=== PATIENT | female | born 1940 | race Caucasian/White ===

== ENCOUNTER → 2017-06-30 | Outpatient (CLI) | payer MEDICARE, BC ==
[~2017-06-30] MED LIST: ALLO100 PO; AMLO10 PO; BUPR75; CALCA500CH PO; CIPR500 PO; CRANBERRY PO; CYAN1000 PO; DIPATR PO; ESOM20; EXFORGE PO; FENT25TP TOP; GABA400 PO; HYDACE10B PO; HYOS0.375T PO; LANS15EC; LEVSOD50 PO; LUNESTA; MECL25 PO; METF500C PO; METFORMIN PO; METO100ER; METO100ER PO; METO50; PHENA100 PO; PRAVACHOL PO; PROBIOTIC PO; TOPROL PO; TOPROL XL PO; VALA500 PO; ZOLP10 PO
[2017-06-30 10:58] LABS: Source, Urine Clean Catch
[2017-06-30 11:41] LABS: Bilirubin, Urine Neg (Neg); Blood, Urine 1+ (Neg); Glucose Qualitative, Urine Neg (Neg); Ketones, Urine Neg (Neg); Leukocyte Esterase, Urine 3+ (Neg); Nitrite, Urine Neg (Neg); Protein, Urine Neg (Neg); Urobilinogen, Urine NORM (Normal)
[2017-06-30 11:52] LABS: Appearance, Urine Clear (Clear); Color, Urine Yellow (P-Yellow)
[2017-06-30 11:54] LABS: Bacteria Many /hpf; Red Blood Cells, Urine 0-2 /hpf (0-2); Squamous Epithelial Cells Mod /hpf (Few); White Blood Cells, Urine TNTC /hpf (0-5)
== END ==
LOC: LAB 10:56
PROVIDERS: Internal Medicine Hematology & Oncology
DX: R30.0 Dysuria (principal)
CPT/HCPCS: 81001; 87077; 87086; 87186

== ENCOUNTER → 2017-07-26 | Outpatient (CLI) | payer MEDICARE, BC ==
[2017-07-26 11:18] LABS: Source, Urine Clean Catch
[2017-07-26 11:42] LABS: Bilirubin, Urine Neg (Neg); Blood, Urine Neg (Neg); Glucose Qualitative, Urine Neg (Neg); Ketones, Urine Neg (Neg); Leukocyte Esterase, Urine Neg (Neg); Nitrite, Urine Neg (Neg); Protein, Urine Neg (Neg); Urobilinogen, Urine NORM (Normal)
[2017-07-26 12:06] LABS: Appearance, Urine Clear (Clear); Color, Urine Yellow (P-Yellow)
== END | disposition home or self-care (01) ==
LOC: LAB 11:17
PROVIDERS: Internal Medicine Hematology & Oncology
DX: C90.00 Multiple myeloma not having achieved remission (principal); N18.3 Chronic kidney disease, stage 3 (moderate); D63.1 Anemia in chronic kidney disease; R30.0 Dysuria
CPT/HCPCS: 81003

== ENCOUNTER → 2017-12-07 | Outpatient (CLI) | payer MEDICARE, BC ==
[2017-12-07 11:26] LABS: Source, Urine Clean Catch
[2017-12-07 12:01] LABS: Bilirubin, Urine Neg (Neg); Blood, Urine Neg (Neg); Glucose Qualitative, Urine Neg (Neg); Ketones, Urine Neg (Neg); Leukocyte Esterase, Urine Neg (Neg); Nitrite, Urine Neg (Neg); Protein, Urine Neg (Neg); Urobilinogen, Urine NORM (Normal); pH, Urine 6.5 (5.0-8.0)
[2017-12-07 12:18] LABS: Appearance, Urine Clear (Clear); Color, Urine Yellow (P-Yellow)
== END | disposition home or self-care (01) ==
LOC: LAB 11:25 → LAB SHORT 11:25
PROVIDERS: Internal Medicine Hematology & Oncology
DX: R30.0 Dysuria (principal); R53.81 Other malaise; R53.83 Other fatigue
CPT/HCPCS: 81003

== ENCOUNTER 2018-10-27 20:00 | Inpatient (IN) | payer MEDICARE, BC ==
[~2018-10-27] VITALS: Ht 165.1 cm; Wt 80.7 kg
[~2018-10-27 20:00] MED LIST changes: -AMLO10 PO; +AMLO5 PO; -LEVSOD50 PO; -METF500C PO; -METO100ER PO
[2018-10-27 20:40] LABS: BASOPHILS ABSOLUTE AUTO 0.01 K/mm3 (0.00-0.23); BASOPHILS PERCENT AUTO 0 % (0-2); EOSINOPHILS ABSOLUTE AUTO 0.07 K/mm3 (0.00-0.68); EOSINOPHILS PERCENT AUTO 2 % (0-6); Hematocrit 30.7 % (33.0-51.0); Hemoglobin 9.6 g/dL (11.5-16.0); IMMATURE GRAN ABSOLUTE AUTO 0.04 K/mm3 (0.00-0.10); IMMATURE GRAN PERCENT AUTO 1 % (0-1); LYMPHOCYTES ABSOLUTE AUTO 1.11 K/mm3 (0.84-5.20); LYMPHOCYTES PERCENT AUTO 31 % (21-46); MONOCYTES ABSOLUTE AUTO 0.36 K/mm3 (0.16-1.47); MONOCYTES PERCENT AUTO 10 % (4-13); Mean Corpuscular HGB 33.9 pg (26.0-34.0); Mean Corpuscular HGB Conc 31.3 g/dL (31.5-36.5); Mean Corpuscular Volume 109 fL (80-100); Mean Platelet Volume 10.1 fL (9.1-12.4); NEUTROPHILS ABSOLUTE AUTO 2.02 K/mm3 (1.96-9.15); NEUTROPHILS PERCENT AUTO 56 % (41-73); Platelet Count 77 K/mm3 (150-400); RDW Coefficient Variation 17.6 % (11.7-14.2); RDW Standard Deviation 69.8 fL (35.1-46.3); Red Blood Cell Count 2.83 M/mm3 (3.80-5.20); White Blood Cell Count 3.61 K/mm3 (4.00-11.30)
[2018-10-27 20:58] LABS: Albumin, Blood 3.6 g/dL (3.4-5.0); Albumin/Globulin Ratio 1.2 (0.8-1.8); Bilirubin, Total 0.3 mg/dL (0.1-1.0); Bun/Creatinine Ratio 18.8 (12.0-20.0); Calcium, Blood 9.3 mg/dL (8.5-10.1); Creatinine, Blood 1.38 mg/dL (0.40-1.00); Potassium, Blood 3.6 mmol/L (3.5-5.5); Total Protein, Blood 6.6 g/dL (6.4-8.2); Troponin I 0.222 ng/mL (0.000-0.040)
[2018-10-27] MEDS ORDERED: Dyazide 37.5-21 EACH PO (21:29)
[2018-10-27] MEDS ORDERED: AMIT25 PO (21:30)
[2018-10-28 02:19] LABS: Hematocrit 26.6 % (33.0-51.0); Hemoglobin 8.4 g/dL (11.5-16.0); Mean Corpuscular HGB 34.1 pg (26.0-34.0); Mean Corpuscular HGB Conc 31.6 g/dL (31.5-36.5); Mean Corpuscular Volume 108 fL (80-100); Mean Platelet Volume 11.4 fL (9.1-12.4); Platelet Count 67 K/mm3 (150-400); RDW Coefficient Variation 17.8 % (11.7-14.2); Red Blood Cell Count 2.46 M/mm3 (3.80-5.20); White Blood Cell Count 3.68 K/mm3 (4.00-11.30)
[2018-10-28 02:35] LABS: Creatinine, Blood 1.22 mg/dL (0.40-1.00); International Normalized Ratio 1.03; Magnesium, Blood 1.8 mg/dL (1.6-2.4); Potassium, Blood 3.8 mmol/L (3.5-5.5); Prothrombin Time Results 10.9 Sec (9.7-11.5)
--- NOTE | 2018-10-28 04:44 | NUR ---
SHIFT SUMMARY: PATIENT C/O DAVIS, TYLENOL GIVEN PER MD ORDER, NOT EFFECTIVE. TROPONIN INCREASED, PATIENT ASYMPTOMATIC, LAB VALUE CALLED TO MD. VSS, CALL LIGHT WITHIN REACH, BED LOW AND LOCKED.
--- NOTE | 2018-10-28 07:48 | NUR ---
PT LAYING IN BED AWAKE A/OX3, PLEASANT AND COOPERATIVE WITH CARE, FOLLOWS COMMANDS WELL, STATES SHE HAS SOME JAW PAIN, IN TO SEE HER, ORDERED S.L. NTG, THIS WAS GIVEN AND RELIEVED THE DISCOMFORT, B/P IS WNL, PT REPORTS A H/A COOL WASH CLOTH GIVEN FOR COMFORT TO HER F/H, LUNGS ARE CLEAR T/O, RESP EVEN AND UNLABORED, IS CURRENTLY ON 2 LITERS 02 VIA N/C, HRR, TELE IN PLACE RUNNING SR IN THE 90'S PER MONITOR, SEE STRIP, NO EDEMA NOTED, PPP FAINT, CAP REFILL <3 SEC, PT REPORTS NEUROPATHY TO B/L LE, IV SITE TO RAC, SITE IS CLEAR AND PATENT, INFSUING HEPERIN GTT ORDERED, SKIN C/W/D, CORA VALIENTE, CALL LIGHT IN REACH, SPOKE WITH DR. GONZALEZ ABOUT HER MEDICATIONS THAT ARE DUE BECAUSE OF HER PLTS AT 67, HE SAID TO HOLD OFF UNTIL AFTER THE PROCEDURE.
--- NOTE | 2018-10-28 11:20 | NUR ---
PT HAS BEEN PREPED AND TAKEN DOWN TO THE PROGRAM EVALUATION CONSULTANT FOR [facility], JUST RECIEVED CALL THAT SHE IS ON HER WAY BACK UP.
--- NOTE | 2018-10-28 13:20 | NUR ---
PT WAS PICKED UP BY TRANSPORT FOR [facility]. EMT WAS GIVEN PACKET. LEFT WITH HEPERIN GTT INFUSING.
== END 2018-10-28 13:30 | disposition short-term general hospital (02) | DRG 281 ==
LOC: ER 20:00 → PCU 22:19
PROVIDERS: Emergency Medicine; Nurse Practitioner Acute Care; ADMIT Internal Medicine
PROC: 4A023N7 Measurement of Cardiac Sampling and Pressure, Left Heart, Percutaneous Approach (ICD-10-PCS; principal; 2018-10-28)
PROC: B211YZZ Fluoroscopy of Multiple Coronary Arteries using Other Contrast (ICD-10-PCS; 2018-10-28)
DX: I21.4 Non-ST elevation (NSTEMI) myocardial infarction (principal); C90.01 Multiple myeloma in remission; E78.5 Hyperlipidemia, unspecified; F41.1 Generalized anxiety disorder; F32.9 Major depressive disorder, single episode, unspecified; K21.9 Gastro-esophageal reflux disease without esophagitis; E03.9 Hypothyroidism, unspecified; I12.9 Hypertensive chronic kidney disease with stage 1 through stage 4 chronic kidney disease, or unspecified chronic kidney disease; E11.22 Type 2 diabetes mellitus with diabetic chronic kidney disease; N18.3 Chronic kidney disease, stage 3 (moderate); I25.10 Atherosclerotic heart disease of native coronary artery without angina pectoris; I25.84 Coronary atherosclerosis due to calcified coronary lesion; Z95.5 Presence of coronary angioplasty implant and graft
CPT/HCPCS: 36415; 71046; 80048; 80053; 82947; 83735; 83880; 84443; 84484; 85025; 85027; 85347; 85610; 85730; 93005; 93010; 93306; 93458; 94640; 94660; 94762; 96374; 96375; 99152; 99153; 99285-25; A9270; C1769; C1894; J1644; J2250; J3010; J7030; J7040; Q9967

== ENCOUNTER 2019-02-04 18:50 | Inpatient (IN) | payer MEDICARE, BC ==
[~2019-02-04] VITALS: Ht 165.1 cm; Wt 76.2 kg
[~2019-02-04 18:50] MED LIST changes: +AMIT25 PO; +Dyazide 37.5-21 EACH PO
[2019-02-04] MEDS ORDERED: OMEPRAZOLE20 MG PO (19:26)
[2019-02-04 19:29] LABS: BASOPHILS ABSOLUTE AUTO 0.01 K/mm3 (0.00-0.23); BASOPHILS PERCENT AUTO 0 % (0-2); EOSINOPHILS ABSOLUTE AUTO 0.06 K/mm3 (0.00-0.68); EOSINOPHILS PERCENT AUTO 1 % (0-6); Hematocrit 29.9 % (33.0-51.0); Hemoglobin 9.4 g/dL (11.5-16.0); IMMATURE GRAN ABSOLUTE AUTO 0.03 K/mm3 (0.00-0.10); IMMATURE GRAN PERCENT AUTO 0 % (0-1); LYMPHOCYTES ABSOLUTE AUTO 0.87 K/mm3 (0.84-5.20); LYMPHOCYTES PERCENT AUTO 13 % (21-46); MONOCYTES ABSOLUTE AUTO 0.49 K/mm3 (0.16-1.47); MONOCYTES PERCENT AUTO 7 % (4-13); Mean Corpuscular HGB 34.9 pg (26.0-34.0); Mean Corpuscular HGB Conc 31.4 g/dL (31.5-36.5); Mean Corpuscular Volume 111 fL (80-100); Mean Platelet Volume 11.4 fL (9.1-12.4); NEUTROPHILS ABSOLUTE AUTO 5.32 K/mm3 (1.96-9.15); NEUTROPHILS PERCENT AUTO 79 % (41-73); NRBC ABSOLUTE 0.03 K/mm3 (0.00-0.02); NRBC Auto 0.4 /100 WBC (0.0-0.2); Platelet Count 73 K/mm3 (150-400); RDW Coefficient Variation 16.5 % (11.7-14.2); RDW Standard Deviation 66.2 fL (35.1-46.3); Red Blood Cell Count 2.69 M/mm3 (3.80-5.20); White Blood Cell Count 6.78 K/mm3 (4.00-11.30)
[2019-02-04 19:45] LABS: Alanine Aminotransfer (ALT/SGP 45 U/L (12-78); Albumin, Blood 3.9 g/dL (3.4-5.0); Albumin/Globulin Ratio 1.3 (0.8-1.8); Alk Phos 67 U/L (50-136); Anion Gap 5 mmol/L (6-16); Aspartate Aminotrans (AST/SGOT 40 U/L (12-37); Bilirubin, Total 0.9 mg/dL (0.1-1.0); Blood Urea Nitrogen 27 mg/dL (8-24); Bun/Creatinine Ratio 20.5 (12.0-20.0); CO2, Blood 23 mmol/L (21-32); Calcium, Blood 8.9 mg/dL (8.5-10.1); Chloride, Blood 111 mmol/L (98-108); Creatinine, Blood 1.32 mg/dL (0.40-1.00); Glomerular Filtration Rate 41 (60-); Glucose, Blood 154 mg/dL (70-99); Potassium, Blood 3.9 mmol/L (3.5-5.5); Sodium, Blood 139 mmol/L (136-145); Total Protein, Blood 6.9 g/dL (6.4-8.2); Troponin I <0.015 ng/mL (0.000-0.040)
[2019-02-04] MEDS ORDERED: TICA90TA PO (20:29)
[2019-02-04] MEDS ORDERED: METO50ER PO (20:31)
[2019-02-04] MEDS ORDERED: LEVSOD50 PO (20:31)
[2019-02-04] MEDS ORDERED: Glucophage1000 MG PO (20:31)
[2019-02-04] MEDS ORDERED: Prinivil10 MG PO (20:32)
[2019-02-04] MEDS ORDERED: ACYC200 PO (20:32)
[2019-02-04] MEDS ORDERED: Dyazide 37.5-21 EACH PO (20:33)
[2019-02-04] MEDS ORDERED: AMLO10 PO (20:34)
[2019-02-04] MEDS ORDERED: ALLO300 PO (20:37)
[2019-02-04] MEDS ORDERED: SILENOR6 MG PO (20:38)
[2019-02-04] MEDS ORDERED: Pravachol40 MG PO (20:39)
[2019-02-04] MEDS ORDERED: HYDR1TAB94 PO (21:28)
[2019-02-04] MEDS ORDERED: Aspir 8181 MG PO (21:29)
[2019-02-05 02:59] LABS: Bun/Creatinine Ratio 24.8 (12.0-20.0); Calcium, Blood 8.6 mg/dL (8.5-10.1); Creatinine, Blood 1.25 mg/dL (0.40-1.00); Potassium, Blood 4.1 mmol/L (3.5-5.5)
--- NOTE | 2019-02-05 03:45 | NUR ---
CRITICAL TROPONIN CRITICAL RESULTS CALLED TO PRATEEK MOLINA RN. DR. VILLA NOTIFED. PT RESTING IN BED, SHE STATES SHE FEELS OK, BUT IS HOT FROM THE TEMPERATURE BEING INCREASED IN HER ROOM. VITALS ARE OBTAINED AND ARE STABLE. HEPARIN DRIP HAS BEEN ORDERED. AWAITING RESULTS OF LABS AT THIS TIME.
[2019-02-05 04:58] LABS: International Normalized Ratio 1.05; Prothrombin Time Results 11.1 Sec (9.7-11.5)
--- NOTE | 2019-02-05 05:05 | NUR ---
SHIFT SUMMARY PT ER ADMIT THIS SHIFT FOR HYPERTENSIVE URGENCY. PT HAS CARDIAC HX WITH RECENT STENT PLACEMENT 11/08 IN [facility]. PT IN NEED OF ADDITIONAL STENTS. PT BP IN ER AT [facility] WAS 233/100. SHE HAS SINCE TRENDED DOWN OVER THE COURSE OF THE NIGHT AFTER RECEIVING THREE NITRO IN THE ER. BP AT THIS TIME 143/60, PULSE 88. SHE DENIES CP, N/V. SKIN WARM AND DRY. LUNG SOUNDS CLEAR UPON AUSCULTATION. 2L O2 IN PLACE. CRTICAL TROPONIN RESULT CAME BACK AROUND [address] VILLA CALLED AND NOTIFIED AND HEPARIN DRIP ORDERED. PT VERY SOB WITH ANY EXERTION, WHEN AMBULATING FROM THE BATHROOM TO THE BED SHE BECOMES EXTREMLY WINDED. DR. VILLA NOTIFED OF THIS. IVF INFUSING AT 125 ML/HR. PT RESTING IN BED WITHOUT ACUTE S/S OF DISTRESS. CHECK SCALER'S AWARE OF PT CRITICAL TROPONIN'S, AND HX OF NSTEMI'S AND STENTS. MONITORING. WILL REPORT TO ONCOMING RN.
--- NOTE | 2019-02-05 05:25 | NUR ---
PLT 0510 PLT ARE LOW AT 73. CALL FROM [facility]FF[facility] PHARMACIST. HE RECOMMENDS PT NOT GET HEPARIN DUE TO LOW PLTS. AND SUGGESTED I CALL DR. VILLA TO NOTIFY HIM OF THIS INFORMATION. 0518 CALL PLACED TO ALLEN TO NOTIFY HIM OF WHAT PHARMACIST DISCUSSED WITH ME. HE STATES THAT HE WANTS PT ON THE HEPARIN GTT, AND THAT HE WILL SPEAK WITH [facility]FF[facility] PHARMACIST DIRECTLY REGARDING THIS. 0520 BUFFY WALDROP NOTIFIED OF CONVERSATION WITH DR. VILLA AND WILL CALL AND SPEAK WITH HIM DIRECTLY. NO HEPARIN ORDERS AT THIS TIME. MONITORING.
--- NOTE | 2019-02-05 06:43 | NUR ---
HEPARIN GTT 0548 PT VOICES CONCERN ABOUT STARTING HEPARIN GTT WHILE TAKING BRILINTA. PT STATES SHE HAS BEEN TAKING BRILINTA FOR THREE MONTHS AND IS CONCERNED WITH INCREASED BLEEDING WHILE BEING ON BOTH BRILINTA AND HEPARIN GTT. I STATED THAT I WOULD CALL DOCTOR VILLA AND NOTIFY HIM OF HER CONCERN. 0550 CALL PLACED TO PHARMACY TO GET A RECOMMENDATION WITH PT BEING ON BRILINTA WITH HEPARIN GTT. PHARMACIST BUFFY WALDROP STATES TO CALL ALLEN TO GET FURTHER CLARIFICATION. CALL PLACED TO DR. VILLA TO NOTIFY HIM PT VOICED CONCERN, AND THAT SHE IS CURRENTLY ON BRILINTA. HE STATED THAT BRILINTA IS NOT A BLOOD THINNER BUT A ANTIPLATELET, AND THE RISK OF PR IS GREATER THAN THE RISK OF BLEEDING AND THAT BLEEDING CAN BE REVERESED IF NECESSARY. HE STATES SHE NEEDS THE HEPARIN GTT, BUT THAT SHE HAS THE RIGHT TO REFUSE, AND THAT HE DID NOT HAVE TIME TO COME SEE THE PT AND TALK WITH HER. RELAYED WHAT DR. VILLA TOLD ME TO PT, AND THAT SHE HAD THE RIGHT TO REFUSE HEPARIN GTT. SHE STATED SHE WAS UNSURE, AND WAS CONCERNED THAT SHE WOULD HAVE TO BE ON THE HEPARIN GTT LONGTERM. I EXPLAINED THAT A HEPARIN GTT IS SHORT TERM. I AGAIN REPEATED WHAT DR. VILLA STATED AND THAT SHE HAD THE RIGHT TO REFUSE. SHE AGREED TO START HEPARIN GTT. BRILINTA WAS NOT DC'D BY DR. VILLA. HEPARIN GTT HUNG AND VERIFIED WITH SANJUANA HANSON, RN. BOTH CERTIFICATION ENGINEER'S NAREN BOO RN AND SANJUANA HANSON, RN. AWARE OF CONVERSATION WITH PT. PHARMACIST AWARE OF SITUATION WELL. WILL NOTIFY DAYSHIFT RN.
--- NOTE | 2019-02-05 07:23 | NUR ---
SPOKE WITH DR. GALEANA AND REQUESTED PT TRANSFER NEW ORDERS RECEIVED TO TRANSFER TO PCU.
--- NOTE | 2019-02-05 07:24 | NUR ---
[facility]. NOTIFIED HER OF PT BACKGROUND, AND THAT PT HAS AN NSTEMI AND IS CURRENTLY ON HEPARIN GTT WITH LOW PLTS, PER ALLEN'S ORDERS. PT IS ALSO TAKING BRILINTA. I ALSO NOTIFIED HER OF PT BP IN THE ER. DR. VILLA DID NOT PLACE ORDERS FOR TRANSFER TO HIGHER CARE DESPITE NSTEMI. GANESH EDEN NURSING MINE SAFETY MANAGER AWARE OF NSTEMI AND LOW PLTS WITH HEPARIN GTT. DR. VILLA KEPT ORDERS FOR MEDICAL FLOOR STATUS WITH HEPARIN GTT. AMALIA CRUZ RN CALLED [facility] HOSPITAL[facility]. [facility]. GALEANA RECEIVED TRANSFER ORDERS TO ICU. PT RESTING IN BED AT THIS TIME. NO ACUTE S/S OF DISTRESS.
--- NOTE | 2019-02-05 07:29 | NUR ---
REPORTED PT CONDITION AND INTENT [facility]
--- NOTE | 2019-02-05 07:52 | NUR ---
REPORT GIVEN TO JACQUELYN REAL ESTATE PROCESSOR. PT INFORMED OF TRANSFER.
--- NOTE | 2019-02-05 08:55 | NUR ---
RECORDS REQUEST DR SALEH REQUESTED RECORDS FROM [facility] FOR PT. CALLED AND CONFIRMED FAX NUMBER. FAXED SIGNED REQUEST TO CONFIRMED NUMBER. CONTINUE POT.
--- NOTE | 2019-02-05 10:55 | NUR ---
Echocardiogram completed.
--- NOTE | 2019-02-05 12:09 | NUR ---
angiogram Pt transferd to asset availability leader via bed @1140. Heparing tt off per order. NE alert and agreeable to go. continue pot.
[2019-02-06 03:28] LABS: BASOPHILS ABSOLUTE AUTO 0.03 K/mm3 (0.00-0.23); BASOPHILS PERCENT AUTO 1 % (0-2); EOSINOPHILS ABSOLUTE AUTO 0.04 K/mm3 (0.00-0.68); EOSINOPHILS PERCENT AUTO 1 % (0-6); Hematocrit 28.3 % (33.0-51.0); Hemoglobin 8.7 g/dL (11.5-16.0); IMMATURE GRAN ABSOLUTE AUTO 0.04 K/mm3 (0.00-0.10); IMMATURE GRAN PERCENT AUTO 1 % (0-1); LYMPHOCYTES ABSOLUTE AUTO 0.89 K/mm3 (0.84-5.20); LYMPHOCYTES PERCENT AUTO 17 % (21-46); MONOCYTES ABSOLUTE AUTO 0.45 K/mm3 (0.16-1.47); MONOCYTES PERCENT AUTO 9 % (4-13); Mean Corpuscular HGB 34.5 pg (26.0-34.0); Mean Corpuscular HGB Conc 30.7 g/dL (31.5-36.5); Mean Corpuscular Volume 112 fL (80-100); Mean Platelet Volume 10.7 fL (9.1-12.4); NEUTROPHILS ABSOLUTE AUTO 3.81 K/mm3 (1.96-9.15); NEUTROPHILS PERCENT AUTO 72 % (41-73); NRBC ABSOLUTE 0.02 K/mm3 (0.00-0.02); NRBC Auto 0.4 /100 WBC (0.0-0.2); Platelet Count 64 K/mm3 (150-400); RDW Coefficient Variation 16.9 % (11.7-14.2); RDW Standard Deviation 69.5 fL (35.1-46.3); Red Blood Cell Count 2.52 M/mm3 (3.80-5.20); White Blood Cell Count 5.26 K/mm3 (4.00-11.30)
[2019-02-06 03:47] LABS: Albumin, Blood 3.5 g/dL (3.4-5.0); Albumin/Globulin Ratio 1.1 (0.8-1.8); Bilirubin, Total 0.9 mg/dL (0.1-1.0); Bun/Creatinine Ratio 21.6 (12.0-20.0); Calcium, Blood 8.8 mg/dL (8.5-10.1); Creatinine, Blood 1.11 mg/dL (0.40-1.00); Globulin, Blood 3.1 g/dL (2.2-4.0); Magnesium, Blood 2.1 mg/dL (1.6-2.4); Potassium, Blood 3.8 mmol/L (3.5-5.5); Total Protein, Blood 6.6 g/dL (6.4-8.2)
--- NOTE | 2019-02-06 06:49 | NUR ---
SHIFT SUMMARY LYING IN SEMI FOWLERS WITH EYES CLOSED. HAS HAD A GOOD SHIFT SINCE EPISODE OF DIAPHORESIS AND FEELING JITTERY AFTER 2ND DOSE OF HYDRALAZINE. DENIES FURTHER NEEDS OR WANTS AT THIS TIME. SAFETY MEASURES IN PLACE. WILL GIVE HAND OFF TO ONCOMING SHIFT USING SBAR.
--- NOTE | 2019-02-06 10:33 | NUR ---
ASSUMED CARE: REPORT RECEIVED FROM EWA Murry RN. ASSUMED CARE OF THIS PT AT APPROX 0700. ON ASSESSMENT, THE PT IS AWAKE, A&O, PLEASANT & COOPERATIVE. SHE STS HAVING A MILD HEADACHE THAT HAS PERSISTED SINCE YESTERDAY's NITRO ADMIN. VSS. PT AMBULATING W/O DIFFICULTY & R RADIAL SITE IS WNL, WRIST IMMOBILIZER IN PLACE. PT ON RA W/ O2 SATS > 92%. MONITOR SHOWS SR W/ HR 80s, HTN PERSISTS, MEDS PER EMAR. PT's DAUGHTER AT BEDSIDE, THEY ARE HOPEFUL TO GO HOME TODAY. WILL CONTINUE TO MONITOR & UPDATE NEEDED.
--- NOTE | 2019-02-06 11:50 | NUR ---
DR RODARTE ([facility]): PROVIDER AT BEDSIDE TO SEE PT. HE HAS SPOKEN W/ THIS RN REGARDING MED CHANGES BEING MADE THIS AM FOR BETTER BP CONTROL. HE HAS BEEN MADE AWARE OF PT's EPISODE OF DIAPHORESIS & SOB DURING THE AERODYNAMIC CONSULTANT. NO OTHER CHANGES AT THIS TIME. WILL CONTINUE TO MONITOR & UPDATE NEEDED.
--- NOTE | 2019-02-06 17:46 | NUR ---
SHIFT SUMMARY: NO ACUTE CHANGES SINCE ASSUMING CARE. PT REMAINS A&O. SHE HAS USED 2L NC PRN FEELING SOB DURING THIS SHIFT, BUT HAS BEEN ON RA OTHERWISE W/ O2 SATS > 92%. MONITOR SHOWS SR W/ HR 90s. BP IMPROVED SINCE HYDRALAZINE PER EMAR. PT HAS NO GI COMPLAINTS & IS VOIDING W/O DIFFICULTY. REPORT HAS BEEN GIVEN TO CYNTHIA Seo RN TO ASSUME CARE IN PCU. WILL CONTINUE TO MONITOR UNTIL TIME OF TRANSFER.
--- NOTE | 2019-02-06 18:43 | NUR ---
Patient just arrived from ICU 16 to PCU 8 via wheelchair post report from Leti CARIAS. Patient independent in room and is arranging room the way she likes it right now and gave her two pillow.
--- NOTE | 2019-02-07 00:29 | NUR ---
Assumed care of pt at approx 1900; VSS and pt is independant in room. Pt uses call light appropriately, a&o. C/o headache, medicated per orders, cool cloth applied to head and kpad applied to neck. Pt with mild relief. Pt breathing easy and unlabored, R radial site free from hematoma, tenderness, or bleeding. PT denies any chest pain or pressure. No changes from initial shift assessment. Report given to ARETHA Garcia who assumes care.
--- NOTE | 2019-02-07 08:46 | NUR ---
ASSUMED CARE ASSUMED CARE OF PT APPROX. 0330. PT SLEEPING AT THIS TIME. BUT NOTED NO CHANGES IN ASSESSMENT SINCE START OF SHIFT. VITAL SIGNS STABLE. ABLE TO COMPLETED FULL ASSESSMENT THIS MORNING. PT BLOOD PRESSURE SLGIHTLY ELEVATED BUT WILL CONTINUE TO MONITOR. PT HAS RIGHT RADIAL SITE POST ANGIO. TEGADERM REMAIN IN PLACE. NO SWELLING, BLEEDING OR HEMATOMA NOTED. PT DENIES ANY TENDERNESS. PT REPROTS SLIGHT SHORTNESS OF BREATH WITH ACTIVITY BUT REPORTS THIS TO BE IMPROVED. PT STATES SHE IS READY TO GO HOME. BED IN LOW POSITION, CALL LIGHT IN REACH AND PT DENIES ANY NEEDS.
[2019-02-07] MEDS ORDERED: ATOR40TA PO (14:04)
[2019-02-07] MEDS ORDERED: Isosorbide Mono60 MG PO (14:06)
--- NOTE | 2019-02-07 15:28 | NUR ---
DISCHARGE RECIEVED DISCHARGE ORDERS FROM PMD. DISCHARGE PROCESS COMPLETED. MEDICATIONS FAXED TO PHARMACY. REVIEWED DISCHARGE INFORMATION WITH PT AND FAMILY. IV'S REMOVED. PT ESCORTED VIA WHEELCHAIR BY PEER STAFF MEMBER TO AUTOMOBILE.
== END 2019-02-07 15:15 | disposition home or self-care (01) | DRG 247 ==
LOC: ER 18:50 → MEDS 18:51 → ICUW 22:50 → MEDS 23:04 → ICUW 02-05 07:55 → PCU 02-06 18:42
PROVIDERS: Emergency Medicine; Internal Medicine; ADMIT Hospitalist
PROC: 4A023N7 Measurement of Cardiac Sampling and Pressure, Left Heart, Percutaneous Approach (ICD-10-PCS; principal; 2019-02-05)
PROC: 027034Z Dilation of Coronary Artery, One Artery with Drug-eluting Intraluminal Device, Percutaneous Approach (ICD-10-PCS; 2019-02-05)
PROC: B210YZZ Fluoroscopy of Single Coronary Artery using Other Contrast (ICD-10-PCS; 2019-02-05)
DX: I21.4 Non-ST elevation (NSTEMI) myocardial infarction (principal); C90.01 Multiple myeloma in remission; I25.110 Atherosclerotic heart disease of native coronary artery with unstable angina pectoris; F32.9 Major depressive disorder, single episode, unspecified; E03.9 Hypothyroidism, unspecified; E78.5 Hyperlipidemia, unspecified; K21.9 Gastro-esophageal reflux disease without esophagitis; M10.9 Gout, unspecified; I16.0 Hypertensive urgency; I12.9 Hypertensive chronic kidney disease with stage 1 through stage 4 chronic kidney disease, or unspecified chronic kidney disease; E11.22 Type 2 diabetes mellitus with diabetic chronic kidney disease; N18.3 Chronic kidney disease, stage 3 (moderate); Z79.84 Long term (current) use of oral hypoglycemic drugs; Z79.82 Long term (current) use of aspirin; I25.82 Chronic total occlusion of coronary artery
CPT/HCPCS: 36415; 71046; 80048; 80053; 82947; 83036; 83735; 83880; 84484; 85025; 85347; 85610; 85730; 92920; 93005; 93010; 93308; 93321; 93458; 96372; 96374; 99152; 99153; 99285-25; A9270; A9270-GY; C1769; C1887; C1894; G0378; J0360; J1644; J1650; J2250; J3010; J7030; Q9967

== ENCOUNTER 2019-04-09 08:58 | Day surgery (SDC) | payer MEDICARE, BC ==
[~2019-04-09 08:58] MED LIST changes: +ACYC200 PO; +ALLO300 PO; +AMLO10 PO; +ATOR40TA PO; +Aspir 8181 MG PO; +Glucophage1000 MG PO; +HYDR1TAB94 PO; +Isosorbide Mono60 MG PO; +LEVSOD50 PO; +METO50ER PO; +OMEPRAZOLE20 MG PO; +Pravachol40 MG PO; +Prinivil10 MG PO; +SILENOR6 MG PO; +TICA90TA PO
[2019-04-09] MEDS ORDERED: CLOP75 PO (10:35)
== END 2019-04-09 15:34 | disposition home or self-care (01) ==
LOC: ATC 08:58
PROC: 30243N1 Transfusion of Nonautologous Red Blood Cells into Central Vein, Percutaneous Approach (ICD-10-PCS; principal; 2019-04-09)
DX: C90.00 Multiple myeloma not having achieved remission (principal); D64.81 Anemia due to antineoplastic chemotherapy; T45.1X5A Adverse effect of antineoplastic and immunosuppressive drugs, initial encounter; D69.6 Thrombocytopenia, unspecified; F32.9 Major depressive disorder, single episode, unspecified; M54.9 Dorsalgia, unspecified; G89.29 Other chronic pain; R73.03 Prediabetes; I12.9 Hypertensive chronic kidney disease with stage 1 through stage 4 chronic kidney disease, or unspecified chronic kidney disease; N18.9 Chronic kidney disease, unspecified; D63.1 Anemia in chronic kidney disease; Z87.891 Personal history of nicotine dependence; Z79.84 Long term (current) use of oral hypoglycemic drugs; Z79.899 Other long term (current) drug therapy; Z88.1 Allergy status to other antibiotic agents; Z88.8 Allergy status to other drugs, medicaments and biological substances; Z91.040 Latex allergy status; Z91.048 Other nonmedicinal substance allergy status
CPT/HCPCS: 36430; 86850; 86900; 86901; 86923; J7050; P9016

== ENCOUNTER 2019-04-27 07:28 | Emergency (ER) | payer MEDICARE, BC ==
[~2019-04-27] VITALS: Ht 165.1 cm; Wt 72.6 kg
[~2019-04-27 07:28] MED LIST changes: +CLOP75 PO
[2019-04-27] MEDS ORDERED: SILENOR3 MG PO (07:45)
[2019-04-27] MEDS ORDERED: Norco 7.5-3251 EACH (07:45)
[2019-04-27 08:20] LABS: BASOPHILS ABSOLUTE AUTO 0.02 K/mm3 (0.00-0.23); BASOPHILS PERCENT AUTO 0 % (0-2); EOSINOPHILS ABSOLUTE AUTO 0.15 K/mm3 (0.00-0.68); EOSINOPHILS PERCENT AUTO 3 % (0-6); Hematocrit 23.9 % (33.0-51.0); Hemoglobin 7.5 g/dL (11.5-16.0); IMMATURE GRAN ABSOLUTE AUTO 0.04 K/mm3 (0.00-0.10); IMMATURE GRAN PERCENT AUTO 1 % (0-1); LYMPHOCYTES PERCENT AUTO 26 % (21-46); MONOCYTES ABSOLUTE AUTO 0.43 K/mm3 (0.16-1.47); MONOCYTES PERCENT AUTO 9 % (4-13); Mean Corpuscular HGB 33.8 pg (26.0-34.0); Mean Corpuscular HGB Conc 31.4 g/dL (31.5-36.5); Mean Corpuscular Volume 108 fL (80-100); Mean Platelet Volume 10.1 fL (9.1-12.4); NEUTROPHILS ABSOLUTE AUTO 2.76 K/mm3 (1.96-9.15); NEUTROPHILS PERCENT AUTO 60 % (41-73); Platelet Count 68 K/mm3 (150-400); RDW Coefficient Variation 17.7 % (11.7-14.2); Red Blood Cell Count 2.22 M/mm3 (3.80-5.20)
[2019-04-27 08:38] LABS: Bun/Creatinine Ratio 22.6 (12.0-20.0); Calcium, Blood 8.7 mg/dL (8.5-10.1); Creatinine, Blood 1.15 mg/dL (0.40-1.00); Potassium, Blood 3.8 mmol/L (3.5-5.5)
[2019-04-27 13:28] LABS: Source, Urine Clean Catch
[2019-04-27 13:32] LABS: Bilirubin, Urine Neg (Neg); Blood, Urine 3+ (Neg); Glucose Qualitative, Urine Neg (Neg); Ketones, Urine Neg (Neg); Leukocyte Esterase, Urine 3+ (Neg); Nitrite, Urine Neg (Neg); Protein, Urine 2+ (Neg); Urobilinogen, Urine NORM (Normal)
[2019-04-27 13:45] LABS: Appearance, Urine Cloudy (Clear); Color, Urine Yellow (P-Yellow)
[2019-04-27 13:46] LABS: Bacteria Many /hpf; Mucus Light (0-Heavy); Squamous Epithelial Cells Few /hpf (Few); White Blood Cells, Urine 50-100 /hpf (0-5)
== END 2019-04-27 14:31 | disposition home or self-care (01) ==
LOC: ER 07:28
PROVIDERS: Emergency Medicine
DX: I72.4 Aneurysm of artery of lower extremity (principal); D50.0 Iron deficiency anemia secondary to blood loss (chronic); D69.6 Thrombocytopenia, unspecified; I10 Essential (primary) hypertension; E11.9 Type 2 diabetes mellitus without complications; E78.5 Hyperlipidemia, unspecified; F32.9 Major depressive disorder, single episode, unspecified; I25.2 Old myocardial infarction; Z79.899 Other long term (current) drug therapy
CPT/HCPCS: 36415; 36430; 80048; 81001; 85025; 86850; 86900; 86901; 86923; 87077; 87086; 87186; 93926; 99285-25; A9270-GY; J7030; P9016

== ENCOUNTER → 2020-04-03 | Outpatient (CLI) | payer MEDICARE, BC ==
[~2020-04-03] MED LIST changes: +GABA300 PO; +GLIM4 PO; +LOPE2C PO; +NITR.6SL SL; +Norco 7.5-3251 EACH; +PANT40 PO; +SILENOR3 MG PO; +ZOLP5 PO
== END | disposition home or self-care (01) ==
LOC: PLD 12:41 → LAB SHORT 12:41
DX: D22.111 Melanocytic nevi of right upper eyelid, including canthus (principal)
CPT/HCPCS: 88305

== ENCOUNTER 2020-06-06 01:59 | Day surgery (SDC) | payer MEDICARE, BC ==
[2020-06-04 12:35] LABS: BASOPHILS ABSOLUTE AUTO 0.03 K/mm3 (0.00-0.23); BASOPHILS PERCENT AUTO 1 % (0-2); EOSINOPHILS ABSOLUTE AUTO 0.15 K/mm3 (0.00-0.68); EOSINOPHILS PERCENT AUTO 4 % (0-6); Hematocrit 24.3 % (33.0-51.0); Hemoglobin 7.3 g/dL (11.5-16.0); IMMATURE GRAN ABSOLUTE AUTO 0.05 K/mm3 (0.00-0.10); IMMATURE GRAN PERCENT AUTO 1 % (0-1); LYMPHOCYTES ABSOLUTE AUTO 1.19 K/mm3 (0.84-5.20); LYMPHOCYTES PERCENT AUTO 28 % (21-46); MONOCYTES ABSOLUTE AUTO 0.31 K/mm3 (0.16-1.47); MONOCYTES PERCENT AUTO 7 % (4-13); Mean Corpuscular HGB 34.1 pg (26.0-34.0); Mean Corpuscular Volume 114 fL (80-100); Mean Platelet Volume 12.4 fL (9.1-12.4); NEUTROPHILS ABSOLUTE AUTO 2.54 K/mm3 (1.96-9.15); NEUTROPHILS PERCENT AUTO 59 % (41-73); NRBC ABSOLUTE 0.02 K/mm3 (0.00-0.02); NRBC Auto 0.5 /100 WBC (0.0-0.2); RDW Coefficient Variation 18.2 % (11.7-14.2); RDW Standard Deviation 75.4 fL (35.1-46.3); RETICULOCYTE COUNT PERCENT 3.07 % (0.50-2.50); Red Blood Cell Count 2.14 M/mm3 (3.80-5.20); White Blood Cell Count 4.27 K/mm3 (4.00-11.30)
[2020-06-04 13:00] LABS: Percent Saturation 43.6 % (15.0-50.0)
[2020-06-04 13:03] LABS: Platelet Count 48 K/mm3 (150-400)
[2020-06-04 13:50] LABS: Thyroid Stimulating Hormone 2.54 uIU/mL (0.360-4.800)
[~2020-06-06 01:59] MED LIST changes: +LEVSOD100 PO; -LEVSOD50 PO
[2020-06-06 17:08] LABS: ALBUMIN 4.3 g/dL (2.9-4.4); ALPHA-1-GLOBULIN 0.3 g/dL (0.0-0.4); ALPHA-2-GLOBULIN 0.9 g/dL (0.4-1.0); BETA GLOBULIN 0.9 g/dL (0.7-1.3); GAMMA GLOBULIN 0.2 g/dL (0.4-1.8); GLOBULIN, TOTAL 2.2 g/dL (2.2-3.9); IMMUNOFIXATION RESULT, SERUM Comment: (.); IMMUNOGLOBULIN A, QN, SERUM 352 mg/dL (64-422); IMMUNOGLOBULIN G, QN, SERUM 246 mg/dL (586-1602); IMMUNOGLOBULIN M, QN, SERUM <5 mg/dL (26-217); M-SPIKE Comment: g/dL (Not Observed); PROTEIN, TOTAL, SERUM 6.5 g/dL (6.0-8.5)
[2020-07-11] MEDS ORDERED: FERSU300 PO (10:54)
[2020-07-11] MEDS ORDERED: POTA10T PO (10:54)
[2020-07-11] MEDS ORDERED: VITAMIN B COMP1 EACH (10:55)
[2020-07-11] MEDS ORDERED: VITAMIN D325 MC3 (10:55)
[2020-07-11] MEDS ORDERED: ACET325 PO (10:55)
[2020-09-29] MEDS ORDERED: Plavix75 MG PO (12:12)
[2020-09-29] MEDS ORDERED: METO100ER PO (12:15)
== END 2020-06-06 12:05 | disposition home or self-care (01) ==
LOC: ATC 01:59
PROVIDERS: Internal Medicine Hematology & Oncology
PROC: 30233N1 Transfusion of Nonautologous Red Blood Cells into Peripheral Vein, Percutaneous Approach (ICD-10-PCS; principal; 2020-06-06)
DX: C90.00 Multiple myeloma not having achieved remission (principal); D53.9 Nutritional anemia, unspecified; D69.6 Thrombocytopenia, unspecified; I10 Essential (primary) hypertension; I25.10 Atherosclerotic heart disease of native coronary artery without angina pectoris; K21.9 Gastro-esophageal reflux disease without esophagitis; I25.2 Old myocardial infarction; M47.16 Other spondylosis with myelopathy, lumbar region; G25.81 Restless legs syndrome; M10.9 Gout, unspecified; E11.40 Type 2 diabetes mellitus with diabetic neuropathy, unspecified; D51.0 Vitamin B12 deficiency anemia due to intrinsic factor deficiency; E03.8 Other specified hypothyroidism; G60.8 Other hereditary and idiopathic neuropathies; Z88.1 Allergy status to other antibiotic agents; Z88.5 Allergy status to narcotic agent; Z88.6 Allergy status to analgesic agent; Z88.8 Allergy status to other drugs, medicaments and biological substances; Z91.040 Latex allergy status; Z91.09 Other allergy status, other than to drugs and biological substances; Z79.02 Long term (current) use of antithrombotics/antiplatelets; Z79.899 Other long term (current) drug therapy
CPT/HCPCS: 36415; 36430; 82607; 82668; 82728; 82746; 82784; 83540; 83550; 83615; 83883; 84155; 84165; 84443; 85025; 85045; 85060; 86334; 86850; 86880; 86900; 86901; 86923; J7050; P9016

== ENCOUNTER 2020-07-18 08:43 | Day surgery (SDC) | payer MEDICARE, BC ==
[~2020-07-18] VITALS: Ht 165.1 cm; Wt 69.1 kg
[~2020-07-18 08:43] MED LIST changes: +ACET325 PO; +FERSU300 PO; +POTA10T PO; +VITAMIN B COMP1 EACH; +VITAMIN D325 MC3
[2020-09-29] MEDS ORDERED: Plavix75 MG PO (12:12)
[2020-09-29] MEDS ORDERED: METO100ER PO (12:15)
== END 2020-07-18 11:00 | disposition home or self-care (01) ==
LOC: ORSCSDS 08:43
PROVIDERS: Internal Medicine Gastroenterology
PROC: 0DB78ZX Excision of Stomach, Pylorus, Via Natural or Artificial Opening Endoscopic, Diagnostic (ICD-10-PCS; principal; 2020-07-18 10:00)
PROC: 0DBB8ZX Excision of Ileum, Via Natural or Artificial Opening Endoscopic, Diagnostic (ICD-10-PCS; principal; 2020-07-18 10:00)
PROC: 0DBL8ZX Excision of Transverse Colon, Via Natural or Artificial Opening Endoscopic, Diagnostic (ICD-10-PCS; principal; 2020-07-18 10:00)
PROC: 0DBN8ZX Excision of Sigmoid Colon, Via Natural or Artificial Opening Endoscopic, Diagnostic (ICD-10-PCS; principal; 2020-07-18 10:00)
PROC: 0DBM8ZX Excision of Descending Colon, Via Natural or Artificial Opening Endoscopic, Diagnostic (ICD-10-PCS; principal; 2020-07-18 10:00)
PROC: 0DB98ZX Excision of Duodenum, Via Natural or Artificial Opening Endoscopic, Diagnostic (ICD-10-PCS; principal; 2020-07-18 10:00)
PROC: 0DBE8ZX Excision of Large Intestine, Via Natural or Artificial Opening Endoscopic, Diagnostic (ICD-10-PCS; principal; 2020-07-18 10:00)
DX: D50.9 Iron deficiency anemia, unspecified (principal); D12.3 Benign neoplasm of transverse colon; D12.4 Benign neoplasm of descending colon; K63.5 Polyp of colon; K21.9 Gastro-esophageal reflux disease without esophagitis; K22.2 Esophageal obstruction; K29.80 Duodenitis without bleeding; K64.8 Other hemorrhoids; I10 Essential (primary) hypertension; E11.9 Type 2 diabetes mellitus without complications; Z85.79 Personal history of other malignant neoplasms of lymphoid, hematopoietic and related tissues; Z79.899 Other long term (current) drug therapy
CPT/HCPCS: 82947; 88305; 88342; J2704; J7120

== ENCOUNTER 2020-08-07 08:49 | Day surgery (SDC) | payer MEDICARE, BC ==
--- NOTE | 2020-08-07 13:49 | NUR ---
LABS DRAWN VIA IV START PER HOSPITAL PROTOCOL
[2020-09-29] MEDS ORDERED: Plavix75 MG PO (12:12)
[2020-09-29] MEDS ORDERED: METO100ER PO (12:15)
== END 2020-08-07 16:15 | disposition home or self-care (01) ==
LOC: ATC 08:49
DX: C90.00 Multiple myeloma not having achieved remission (principal); D63.1 Anemia in chronic kidney disease; I25.10 Atherosclerotic heart disease of native coronary artery without angina pectoris; I10 Essential (primary) hypertension; K21.9 Gastro-esophageal reflux disease without esophagitis; E11.40 Type 2 diabetes mellitus with diabetic neuropathy, unspecified; Z79.84 Long term (current) use of oral hypoglycemic drugs; Z87.891 Personal history of nicotine dependence; Z88.8 Allergy status to other drugs, medicaments and biological substances
CPT/HCPCS: 36430; 86850; 86900; 86901; 86923; J7050; P9016

== ENCOUNTER 2020-10-06 00:28 | Day surgery (SDC) | payer MEDICARE, BC ==
[~2020-10-06 00:28] MED LIST changes: +METO100ER PO; +Plavix75 MG PO
== END 2020-10-06 10:15 | disposition home or self-care (01) ==
LOC: ATC 00:28
DX: D61.818 Other pancytopenia (principal); Z01.812 Encounter for preprocedural laboratory examination; I25.10 Atherosclerotic heart disease of native coronary artery without angina pectoris; I10 Essential (primary) hypertension; E11.9 Type 2 diabetes mellitus without complications; C90.01 Multiple myeloma in remission; Z94.81 Bone marrow transplant status; Z95.5 Presence of coronary angioplasty implant and graft; Z79.02 Long term (current) use of antithrombotics/antiplatelets; Z79.84 Long term (current) use of oral hypoglycemic drugs; Z88.5 Allergy status to narcotic agent; Z88.8 Allergy status to other drugs, medicaments and biological substances; Z91.09 Other allergy status, other than to drugs and biological substances; Z87.891 Personal history of nicotine dependence
CPT/HCPCS: 36415; 36430; 86850; 86900; 86901; J7050; P9035

== ENCOUNTER 2020-10-07 08:42 | Day surgery (SDC) | payer MEDICARE, BC ==
[~2020-10-07] VITALS: Ht 165.1 cm; Wt 68.3 kg
--- NOTE | 2020-10-07 10:05 | NUR ---
History, Chart, Medications and Allergies reviewed before start of procedure. Lungs clear T/O to Auscultation. Patient confirms NPO status and agrees with scheduled surgery. Pre-Op teaching done. Pt verbalizes understanding. Patient reports completing Chlorhexadine shower X2 prior to admission to hospital.
--- NOTE | 2020-10-07 13:19 | NUR ---
PT AWAKE, PAINFUL OF 5/10, DECLINES ANYTHING TO EAT OR DRINK. HAS A HARD TIME TAKING A DEEP BREATH. DRESSING SMALL AMOUNT OF DRAINAGE. ALONZO WILL BE EMPTIED. O2 AT 3L, 96%. WHEN 02 REMOVED DOWN TO 82%. ALONZO EMPTIED 60CC OF BLOODY SERO-GALLARDO DRAINAGE.
--- NOTE | 2020-10-07 13:36 | NUR ---
PT NOW TAKING SMALL SIPS OF WATER.
--- NOTE | 2020-10-07 14:00 | NUR ---
SP02 DROPPED TO 89% ON 1L, INCREASED TO 2L, SP02 BACK UP TO 93%.
--- NOTE | 2020-10-07 14:05 | NUR ---
IN UNIT, UPDATED ABOUT PAIN, 02 STATUS. CONTINUE TO WATCH.
--- NOTE | 2020-10-07 14:29 | NUR ---
PT STARTING TO TAKE SOME DEEP BREATHS. DRESSING UNCHANGED. ALONZO CONT TO DRAIN.
--- NOTE | 2020-10-07 14:31 | NUR ---
RX GIVEN TO TO FILL.
--- NOTE | 2020-10-07 14:38 | NUR ---
PT REPORTS PAIN AT 11/29, ALONZO DRAINED TOTAL OF 100CC. WILL CALL MD FOR FURTHER ORDERS. 02 CONT AT 2L SP02 95%, DECREASED TO 1L WILL SEE WHAT PT SP02 STAYS AT.
--- NOTE | 2020-10-07 14:40 | NUR ---
SP02 DECREASES TO 90%.
--- NOTE | 2020-10-07 14:48 | NUR ---
UPDATE TO & , GAVE ORDER FOR IV FENTANYL, AND TO CALL THE RN SENIOR DESIGN ENGINEER FOR AN EXTENDED RECOVERY TO BE PLACED ON 2ND FLOOR.
--- NOTE | 2020-10-07 18:21 | NUR ---
SHIFT SUMMARY PT S/P LAP CLAIR LEIVA D/I, ABD BINDER ON. A&OX4, VSS/3LNC SATS >92%, TCDB & I.S. EDU & ENC/PT DEMONSTRATED, VOIDING WELL, JOE PO, DENIES N&V. AMB SBA TO BRP. REPOSITIONS SELF WELL IN BED. PAIN TREATED WITH 10 MG NORCO, 25 MCGS FENT. WILL REPORT TO ONCOMING NOC RN.
[2020-10-07 23:23] LABS: Hematocrit 21.6 % (33.0-51.0)
--- NOTE | 2020-10-08 04:47 | NUR ---
SHIFT SUMMARY POD1 LAP CALI, A/O X4, VSS, TOLERATING PO, AMBULATING WELL, VOIDING, MODERATE/HIGH OUTPUT FROM ALONZO AT START OF SHIFT BUT APPEARS TO BE SLOWING DOWN, DRAINAGE NOTED IS MOSTLY SANGUINOUS AT START OF SHIFT BUT APPEARS TO BE SLOWLY CHANGING TO SS DRAINAGE, PAIN WELL MANAGED PER EMAR, NO ACUTE EVENTS THIS SHIFT. CALL LIGHT IN REACH, WILL CONTINUE TO MONITOR AND REPORT TO ONCOMING DAY RN.
--- NOTE | 2020-10-08 12:04 | NUR ---
PT UP IN ROOM WITH NURSING STAFF AND SPOUSE.
[2020-10-08] MEDS ORDERED: Norco 5-325 Ta1 EACH PO (12:44)
--- NOTE | 2020-10-08 13:16 | NUR ---
provided pt and spouse with discharge instructions, printed material, instructions for emptying/tracking ALONZO drain output and dressing change. pt and spouse report understanding. removed peripheral IV WNL. Pt has written prescription at home for analgesia. pt's will transport pt's belongings to vehicle. pt will transfer via wheelchair to vehicle.
== END 2020-10-08 13:28 | disposition home or self-care (01) ==
LOC: SURS 08:42 → ORSCMMR 08:42 → ORD 10:15 → ORSCMMR 10:15 → SURS 15:09 → ORSCMMR 10-08 13:28
PROVIDERS: Surgery
DX: K80.10 Calculus of gallbladder with chronic cholecystitis without obstruction (principal)
CPT/HCPCS: 36415; 74300; 82947; 85014; 85018; 88304; A9270; C1729; J0690; J1100; J1885; J2405; J2704; J3010; J7120

== ENCOUNTER 2020-10-12 03:47 | Inpatient (IN) | payer MEDICARE, BC ==
[~2020-10-12] VITALS: Ht 165.1 cm; Wt 64.6 kg
[~2020-10-12 03:47] MED LIST changes: +Norco 5-325 Ta1 EACH PO
[2020-10-12 04:15] LABS: BASOPHILS ABSOLUTE AUTO 0.03 K/mm3 (0.00-0.23); BASOPHILS PERCENT AUTO 0 % (0-2); EOSINOPHILS ABSOLUTE AUTO 0.33 K/mm3 (0.00-0.68); EOSINOPHILS PERCENT AUTO 5 % (0-6); Hematocrit 21.9 % (33.0-51.0); Hemoglobin 6.7 g/dL (11.5-16.0); Mean Corpuscular HGB Conc 30.6 g/dL (31.5-36.5); Mean Corpuscular Volume 118 fL (80-100); Mean Platelet Volume 11.6 fL (9.1-12.4); Platelet Count 62 K/mm3 (150-400); RDW Standard Deviation 71.9 fL (35.1-46.3); Red Blood Cell Count 1.86 M/mm3 (3.80-5.20); White Blood Cell Count 6.96 K/mm3 (4.00-11.30)
[2020-10-12 04:22] LABS: IMMATURE GRAN ABSOLUTE AUTO 0.08 K/mm3 (0.00-0.10); IMMATURE GRAN PERCENT AUTO 1 % (0-1); LYMPHOCYTES ABSOLUTE AUTO 2.03 K/mm3 (0.84-5.20); LYMPHOCYTES PERCENT AUTO 29 % (21-46); MONOCYTES ABSOLUTE AUTO 0.27 K/mm3 (0.16-1.47); MONOCYTES PERCENT AUTO 4 % (4-13); NEUTROPHILS ABSOLUTE AUTO 4.22 K/mm3 (1.96-9.15); NEUTROPHILS PERCENT AUTO 61 % (41-73)
[2020-10-12 04:31] LABS: Alanine Aminotransfer (ALT/SGP 31 U/L (12-78); Albumin, Blood 3.7 g/dL (3.4-5.0); Albumin/Globulin Ratio 1.3 (0.8-1.8); Alk Phos 55 U/L (50-136); Anion Gap 5 mmol/L (6-16); Aspartate Aminotrans (AST/SGOT 18 U/L (12-37); Bilirubin, Total 0.9 mg/dL (0.1-1.0); Blood Urea Nitrogen 19 mg/dL (8-24); Bun/Creatinine Ratio 16.4 (12.0-20.0); CO2, Blood 27 mmol/L (21-32); Calcium, Blood 8.5 mg/dL (8.5-10.1); Chloride, Blood 107 mmol/L (98-108); Creatinine, Blood 1.16 mg/dL (0.40-1.00); Globulin, Blood 2.9 g/dL (2.2-4.0); Glomerular Filtration Rate 48 (60-); Glucose, Blood 142 mg/dL (70-99); Potassium, Blood 3.8 mmol/L (3.5-5.5); Sodium, Blood 139 mmol/L (136-145); Total Protein, Blood 6.6 g/dL (6.4-8.2)
[2020-10-12 04:48] LABS: Troponin I <0.015 ng/mL (0.000-0.040)
[2020-10-12] MEDS ORDERED: VITAMIN B-1250 MCG PO (06:47)
--- NOTE | 2020-10-12 09:44 | NUR ---
PT ARRIVED TO UNIT AT APROX 0935 FROM ER. PT C/O EPIGASTRIC PAIN 10/ AND L SHOULDER/NECK PAIN 8/. O2 SAT 77% AFTER APROX 2MIN ON RA DURING TX FROM GURNEY TO BED, 5L O2 NC PLACED ON PT, O2 SATS UP TO 94% SO O2 TITRATED DOWN TO 4L. ALONZO DRAIN WITH APROX 20ML BILE LOOKING LIQUID PRESENT, DRESSING SATURATED SO CHANGED BY THIS RN. DR WATERS IN ROOM TO SEE PT ON ADMIT.
--- NOTE | 2020-10-12 19:19 | NUR ---
SHIFT SUMMARY PT HAS CONTINUED TO HAVE PAIN T/O SHIFT. HOWEVER, WAS IMPROVED AFTER TORADOL. PT DID PASS A LARGE AMOUNT OF GAS AND STATED THAT THAT ALSO HELPED. HAS DECLINED FOOD BUT TOLERATING CLEAR LIQUIDS. ALONZO WITH APROX 100 ML DARK/BILE LIQUID OUT T/O SHIFT. UP TO BATHRROM SBA W/FWW.
--- NOTE | 2020-10-12 22:15 | NUR ---
DRESSING AROUND ALONZO SITE SATURATED WITH YELLOW AND SS FLUID. DRESSING AND GOWN CHANGED.
[2020-10-13 04:27] LABS: BASOPHILS ABSOLUTE AUTO 0.03 K/mm3 (0.00-0.23); BASOPHILS PERCENT AUTO 0 % (0-2); EOSINOPHILS ABSOLUTE AUTO 0.08 K/mm3 (0.00-0.68); EOSINOPHILS PERCENT AUTO 1 % (0-6); Hemoglobin 7.9 g/dL (11.5-16.0); IMMATURE GRAN ABSOLUTE AUTO 0.07 K/mm3 (0.00-0.10); IMMATURE GRAN PERCENT AUTO 1 % (0-1); LYMPHOCYTES ABSOLUTE AUTO 1.24 K/mm3 (0.84-5.20); LYMPHOCYTES PERCENT AUTO 15 % (21-46); MONOCYTES ABSOLUTE AUTO 0.26 K/mm3 (0.16-1.47); MONOCYTES PERCENT AUTO 3 % (4-13); Mean Corpuscular HGB 35.7 pg (26.0-34.0); Mean Corpuscular HGB Conc 32.9 g/dL (31.5-36.5); Mean Platelet Volume 11.1 fL (9.1-12.4); NEUTROPHILS ABSOLUTE AUTO 6.74 K/mm3 (1.96-9.15); NEUTROPHILS PERCENT AUTO 80 % (41-73); Platelet Count 52 K/mm3 (150-400); RDW Coefficient Variation 21.2 % (11.7-14.2); RDW Standard Deviation 83.7 fL (35.1-46.3); Red Blood Cell Count 2.21 M/mm3 (3.80-5.20); White Blood Cell Count 8.42 K/mm3 (4.00-11.30)
[2020-10-13 04:33] LABS: Mean Corpuscular Volume 109 fL (80-100)
--- NOTE | 2020-10-13 04:52 | NUR ---
SHIFT SUMMARY: HOMA IS A&O X4. VSS, NO ACUTE EVENTS OVERNIGHT. ALONZO HAS PUT OUT 190 THIS SHIFT, THE DISCHARGE HAS DARKENED FROM BILE YELLOW WITH SOME RED STREAKS TO PUMPKIN ORANGE. SHE IS A ONE PERSON STANDBY ASSIST TO THE BATHROOM WITH THE HELP OF THE FWW. SHE IS TOLERATING PO INTAKE WELL, BUT REPORTS A POOR APPETITE. LAP SITES X 3 C/D&I WITH BRUISING NOTED AROUND THE SITE. SHE IS LYING IN BED WITH THE CALL LIGHT IN REACH. WILL REPORT TO DAY SHIFT RN.
[2020-10-13 05:03] LABS: Albumin, Blood 3.4 g/dL (3.4-5.0); Albumin/Globulin Ratio 1.1 (0.8-1.8); Bilirubin, Total 1.2 mg/dL (0.1-1.0); Bun/Creatinine Ratio 16.1 (12.0-20.0); Calcium, Blood 8.9 mg/dL (8.5-10.1); Creatinine, Blood 1.43 mg/dL (0.40-1.00); Globulin, Blood 3.2 g/dL (2.2-4.0); Potassium, Blood 4.4 mmol/L (3.5-5.5); Total Protein, Blood 6.6 g/dL (6.4-8.2)
--- NOTE | 2020-10-13 06:32 | NUR ---
PT REPORTS INCREASED PAIN WHICH HAS NOT IMPROVED AFTER PAIN MEDICATION. SHE WAS ENCOURAGED TO GET UP AND WALK TO HELP DISPLACE GAS AND PRUNE JUICE WAS OFFERED. SHE WAS ABLE TO WALK OVER 500 FT IN THE HALLWAYS. ABDOMINAL BINDER AND K PAD PLACED FOR COMFORT. SHE STATES SHE HAS NOT PASSED GAS FOR TWO DAYS AND HAS NOT HAD A BOWEL MOVEMENT SINCE TUESDAY. DR. WATERS CONTACTED, WILL AWAIT ORDERS.
--- NOTE | 2020-10-13 12:06 | NUR ---
DR WATERS IN TO SEE PT
--- NOTE | 2020-10-13 14:16 | NUR ---
ALONZO DRESSING SATURATED IN YELLOW DRAINAGE. CHANGED ALONZO DRAIN SPONGE.
--- NOTE | 2020-10-13 14:28 | NUR ---
PT RESTING IN BED. REPORTED TO SN THAT IT WAS TIME FOR PAIN MEDS BUT WHEN BROUGHT IN BY RN, STATED PAIN WAS TOLERABLE AT REST AND DECIDED WOULD LIKE TO WAIT. S.O. AT BEDSIDE. CALL LIGHT IN REACH.
--- NOTE | 2020-10-13 17:08 | NUR ---
SHIFT SUMMARY POD 6 LAP CHOLECYSTECTOMY. A&OX4. PT AMBULATED IN THE HALLWAY DURING THE SHIFT. ALONZO DRAIN DRAINING YELLOW BILE, SATURATED DRAIN DRESSING TWICE AND HAS BEEN CHANGED. PT REPORTS PASSING FLATUS IN THE EVENING AND HAS NOT HAD A BM. HAS A POOR APPETITE, NOT EATING MUCH OF HER MEALS. ON 2L NC. MEDICATED FOR PAIN PRN. MEDICATED FOR NAUSEA PRN. PT RESTING IN BED. CALL LIGHT IN REACH.
[2020-10-14 04:46] LABS: Hematocrit 22.8 % (33.0-51.0); Hemoglobin 7.3 g/dL (11.5-16.0); Mean Corpuscular HGB 35.6 pg (26.0-34.0); Mean Corpuscular Volume 111 fL (80-100); Mean Platelet Volume 10.1 fL (9.1-12.4); RDW Coefficient Variation 19.9 % (11.7-14.2); RDW Standard Deviation 80.7 fL (35.1-46.3); Red Blood Cell Count 2.05 M/mm3 (3.80-5.20); White Blood Cell Count 7.44 K/mm3 (4.00-11.30)
[2020-10-14 04:48] LABS: Platelet Count 50 K/mm3 (150-400)
[2020-10-14 05:21] LABS: Percent Saturation 16.1 % (15.0-50.0)
[2020-10-14 05:22] LABS: Albumin/Globulin Ratio 0.9 (0.8-1.8); Calcium, Blood 8.6 mg/dL (8.5-10.1); Creatinine, Blood 1.5 mg/dL (0.40-1.00); Globulin, Blood 3.3 g/dL (2.2-4.0); Potassium, Blood 4.3 mmol/L (3.5-5.5); Total Protein, Blood 6.3 g/dL (6.4-8.2)
--- NOTE | 2020-10-14 06:56 | NUR ---
SUMMARY CALLED DR ELSA MENDOZA REGARDING PT INCREASED PAIN AND REPORTING MEDS INEFFECTIVE. DR GONG PT STILL TAKING PO MEDS, BUT ALSO CHANGED SUBLIMAZE ORDER TO 50 MCG Q2 HR PRN INSTEAD OF 25 MCG Q 1 HR PRN.PT VERB 50 MCG EFFECTIVE WITH MUCH RELIEF REPORTED.PT WAS ALSO GIVEN 1 PO PAIN MED THIS AM TO ASSIST FOR UPCOMING AM ACTIVITY AND UPT TO CHAIR AT BEDSIDE 0530.PT ASLEEP AT THIS TIME.
--- NOTE | 2020-10-14 08:16 | NUR ---
ALONZO DRESSING SATURATED IN YELLOW BILE. CHANGED ALONZO DRAIN DRESSING.
--- NOTE | 2020-10-14 11:51 | NUR ---
DR WATERS IN TO SEE PT. PLAN TO DC HOME TODAY W/ALONZO DRAIN.
--- NOTE | 2020-10-14 11:53 | NUR ---
PT REPORTS PASSED FLATUS AFTER AMBULATING IN [place] W/SN.
--- NOTE | 2020-10-14 12:59 | NUR ---
TITRATED 02 TITRATED TO 1L, PT TOLERATED AND MAINTAINED SATS ABOVE 92%. TOOK 02 OFF PT, RECHECKED 45 MINUTES LATER AND SATS WERE IN MID 80S. ADVISED PT MUST HAVE SATS 90% OR GREATER ON RA TO DISCHARGE HOME. PT REFUSED TO AMBULATE IN [place] BUT IS SITTING ON SIDE OF BED, USING IS.
--- NOTE | 2020-10-14 13:41 | NUR ---
02 SATS PT USED IS, AMBULATED IN [place] ON RA. 02 SATS 91% ON RA. DISCUSSED USING IS W/PT AND SPOUSE AT HOME. VERBALIZED UNDERSTANDING.
--- NOTE | 2020-10-14 13:53 | NUR ---
WENT OVER DISCHARGE INFORMATION W/PT AND S.O., VERBALIZED UNDERSTANDING. IV DC'D, WNL, CATHETER INTACT. PT GETTING DRESSED.
--- NOTE | 2020-10-14 14:16 | NUR ---
PT LEFT FLOOR VIA W/C W/ POSSESSIONS AND DISCHARGE INFORMATION IN HAND TO RIDE WAITING OUTSIDE.
== END 2020-10-14 14:08 | disposition home or self-care (01) | DRG 392 ==
LOC: ER 03:47 → SURS 03:48
PROVIDERS: Emergency Medicine; Internal Medicine; ADMIT Surgery
DX: R10.13 Epigastric pain (principal); C90.01 Multiple myeloma in remission; D61.818 Other pancytopenia; M10.9 Gout, unspecified; G89.18 Other acute postprocedural pain; F32.9 Major depressive disorder, single episode, unspecified; F41.9 Anxiety disorder, unspecified; E03.9 Hypothyroidism, unspecified; I25.10 Atherosclerotic heart disease of native coronary artery without angina pectoris; E78.5 Hyperlipidemia, unspecified; I12.9 Hypertensive chronic kidney disease with stage 1 through stage 4 chronic kidney disease, or unspecified chronic kidney disease; E11.22 Type 2 diabetes mellitus with diabetic chronic kidney disease; D63.1 Anemia in chronic kidney disease; I16.0 Hypertensive urgency; I25.118 Atherosclerotic heart disease of native coronary artery with other forms of angina pectoris; N18.30 Chronic kidney disease, stage 3 unspecified; G25.81 Restless legs syndrome; K21.9 Gastro-esophageal reflux disease without esophagitis; D50.0 Iron deficiency anemia secondary to blood loss (chronic); I25.2 Old myocardial infarction; Z95.5 Presence of coronary angioplasty implant and graft; Z90.49 Acquired absence of other specified parts of digestive tract; Z90.710 Acquired absence of both cervix and uterus; Z87.891 Personal history of nicotine dependence; Z88.1 Allergy status to other antibiotic agents; Z88.5 Allergy status to narcotic agent; Z88.6 Allergy status to analgesic agent; Z88.8 Allergy status to other drugs, medicaments and biological substances; Z91.040 Latex allergy status; Z91.048 Other nonmedicinal substance allergy status; Z79.84 Long term (current) use of oral hypoglycemic drugs; Z79.899 Other long term (current) drug therapy
CPT/HCPCS: 36415; 36430; 71045; 74177; 80053; 82728; 83540; 83550; 83690; 84484; 85025; 85027; 86850; 86900; 86901; 86923; 93005; 93010; 96374; 96375; 96376; 99285-25; A9270; G0378; J1170; J1885; J2060; J2405; J3010; J7120; P9016; Q9967

== ENCOUNTER → 2020-11-19 | Outpatient (CLI) | payer MEDICARE, BC ==
[~2020-11-19] MED LIST changes: +CHOLESTYRAMI239.4 G1 PO; +VITAMIN B-1250 MCG PO
[2020-11-20 11:58] LABS: Adenovirus F 40/41 Not Detected (NOT DETECT); Astrovirus Not Detected (NOT DETECT); Campylobacter Sp Not Detected (NOT DETECT); Cryptosporidium Not Detected (NOT DETECT); Cyclospora Cayetanensis Not Detected (NOT DETECT); E. Coli O157 Not Detected (NOT DETECT); Entamoeba Histolytica Not Detected (NOT DETECT); Enteroaggregative E. coli-EAEC Not Detected (NOT DETECT); Enteropathogenic E. coli-EPEC Not Detected (NOT DETECT); Enterotoxigenic E. coli-ETEC Not Detected (NOT DETECT); Giardia Lamblia Not Detected (NOT DETECT); Norovirus GI/GII Not Detected (NOT DETECT); Plesiomonas Shigelloides Not Detected (NOT DETECT); Rotavirus A Not Detected (NOT DETECT); Salmonella Sp Not Detected (NOT DETECT); Sapovirus Not Detected (NOT DETECT); Shiga Toxin-prod E. coli-STEC Not Detected (NOT DETECT); Shigella/Enteroin E. coli-EIEC Not Detected (NOT DETECT); Vibrio Cholerae Not Detected (NOT DETECT); Vibrio Sp Not Detected (NOT DETECT); Yersinia Enterocolitica Not Detected (NOT DETECT)
== END ==
LOC: LAB 02:00 → LAB SHORT 02:00
PROVIDERS: Family Medicine
DX: R19.7 Diarrhea, unspecified (principal)
CPT/HCPCS: 0097U

== ENCOUNTER 2020-11-21 04:46 | Day surgery (SDC) | payer MEDICARE, BC ==
[2020-11-18 08:15] LABS: BASOPHILS ABSOLUTE AUTO 0.01 K/mm3 (0.00-0.23); BASOPHILS PERCENT AUTO 0 % (0-2); EOSINOPHILS ABSOLUTE AUTO 0.08 K/mm3 (0.00-0.68); EOSINOPHILS PERCENT AUTO 3 % (0-6); Hematocrit 21.3 % (33.0-51.0); Hemoglobin 6.9 g/dL (11.5-16.0); IMMATURE GRAN ABSOLUTE AUTO 0.01 K/mm3 (0.00-0.10); IMMATURE GRAN PERCENT AUTO 0 % (0-1); LYMPHOCYTES ABSOLUTE AUTO 0.43 K/mm3 (0.84-5.20); LYMPHOCYTES PERCENT AUTO 17 % (21-46); MONOCYTES ABSOLUTE AUTO 0.19 K/mm3 (0.16-1.47); MONOCYTES PERCENT AUTO 8 % (4-13); Mean Corpuscular HGB 36.1 pg (26.0-34.0); Mean Corpuscular HGB Conc 32.4 g/dL (31.5-36.5); Mean Corpuscular Volume 112 fL (80-100); Mean Platelet Volume 11.8 fL (9.1-12.4); NEUTROPHILS ABSOLUTE AUTO 1.76 K/mm3 (1.96-9.15); NEUTROPHILS PERCENT AUTO 71 % (41-73); RDW Coefficient Variation 20.2 % (11.7-14.2); RDW Standard Deviation 81.4 fL (35.1-46.3); Red Blood Cell Count 1.91 M/mm3 (3.80-5.20); White Blood Cell Count 2.48 K/mm3 (4.00-11.30)
[2020-11-18 08:26] LABS: Albumin, Blood 3.7 g/dL (3.4-5.0); Albumin/Globulin Ratio 1.3 (0.8-1.8); Bilirubin, Total 0.8 mg/dL (0.1-1.0); Bun/Creatinine Ratio 13.5 (12.0-20.0); Calcium, Blood 8.6 mg/dL (8.5-10.1); Creatinine, Blood 1.11 mg/dL (0.40-1.00); Globulin, Blood 2.8 g/dL (2.2-4.0); Potassium, Blood 3.5 mmol/L (3.5-5.5); Total Protein, Blood 6.5 g/dL (6.4-8.2)
[2020-11-18 08:38] LABS: Platelet Count 33 K/mm3 (150-400)
[2020-11-19 08:35] LABS: Performing Lab BLOODWORKS; Test Name ABID
[2020-11-20 06:55] LABS: Result SEE REPORT
[2020-11-20 13:12] LABS: A/G RATIO 1.8 (0.7-1.7); ALBUMIN 3.9 g/dL (2.9-4.4); ALPHA-1-GLOBULIN 0.3 g/dL (0.0-0.4); ALPHA-2-GLOBULIN 0.9 g/dL (0.4-1.0); BETA GLOBULIN 0.8 g/dL (0.7-1.3); GAMMA GLOBULIN 0.3 g/dL (0.4-1.8); GLOBULIN, TOTAL 2.2 g/dL (2.2-3.9); IMMUNOGLOBULIN A, QN, SERUM 184 mg/dL (64-422); IMMUNOGLOBULIN G, QN, SERUM 267 mg/dL (586-1602); IMMUNOGLOBULIN M, QN, SERUM <5 mg/dL (26-217); M-SPIKE 0.1 g/dL (Not Observed); PROTEIN, TOTAL, SERUM 6.1 g/dL (6.0-8.5)
[~2020-11-21 04:46] MED LIST changes: -CHOLESTYRAMI239.4 G1 PO
[2020-11-21] MEDS ORDERED: CHOLESTYRAMI239.4 G1 PO (14:01)
== END 2020-11-21 17:37 | disposition home or self-care (01) ==
LOC: ATC 04:46
PROVIDERS: Internal Medicine Hematology & Oncology
DX: C90.00 Multiple myeloma not having achieved remission (principal)
CPT/HCPCS: 36415; 36430; 80053; 82784; 83883; 84155; 84165; 85025; 86334; 86850; 86870; 86880; 86900; 86901; 86902; 86905; 86922; 86970; J7050; P9016

== ENCOUNTER 2020-12-18 02:03 | Day surgery (SDC) | payer MEDICARE, BC ==
[2020-12-16 08:04] LABS: BASOPHILS ABSOLUTE AUTO 0.01 K/mm3 (0.00-0.23); BASOPHILS PERCENT AUTO 0 % (0-2); EOSINOPHILS ABSOLUTE AUTO 0.08 K/mm3 (0.00-0.68); EOSINOPHILS PERCENT AUTO 2 % (0-6); Hematocrit 23.3 % (33.0-51.0); Hemoglobin 7.4 g/dL (11.5-16.0); IMMATURE GRAN ABSOLUTE AUTO 0.03 K/mm3 (0.00-0.10); IMMATURE GRAN PERCENT AUTO 1 % (0-1); LYMPHOCYTES ABSOLUTE AUTO 1.95 K/mm3 (0.84-5.20); LYMPHOCYTES PERCENT AUTO 44 % (21-46); MONOCYTES ABSOLUTE AUTO 0.33 K/mm3 (0.16-1.47); MONOCYTES PERCENT AUTO 7 % (4-13); Mean Corpuscular HGB 34.9 pg (26.0-34.0); Mean Corpuscular HGB Conc 31.8 g/dL (31.5-36.5); Mean Corpuscular Volume 110 fL (80-100); Mean Platelet Volume 12.3 fL (9.1-12.4); NEUTROPHILS ABSOLUTE AUTO 2.06 K/mm3 (1.96-9.15); NEUTROPHILS PERCENT AUTO 46 % (41-73); NRBC ABSOLUTE 0.02 K/mm3 (0.00-0.02); NRBC Auto 0.4 /100 WBC (0.0-0.2); Platelet Count 61 K/mm3 (150-400); RDW Coefficient Variation 24.2 % (11.7-14.2); RDW Standard Deviation 94.7 fL (35.1-46.3); Red Blood Cell Count 2.12 M/mm3 (3.80-5.20); White Blood Cell Count 4.46 K/mm3 (4.00-11.30)
[~2020-12-18 02:03] MED LIST changes: +CHOLESTYRAMI239.4 G1 PO
== END 2020-12-18 15:57 | disposition home or self-care (01) ==
LOC: ATC 02:03 → LAB FUT 12-12 13:40 → EDSTATUS 12-12 13:40
PROVIDERS: Internal Medicine Hematology & Oncology
DX: C90.00 Multiple myeloma not having achieved remission (principal); I10 Essential (primary) hypertension; E11.9 Type 2 diabetes mellitus without complications; I25.10 Atherosclerotic heart disease of native coronary artery without angina pectoris; K21.9 Gastro-esophageal reflux disease without esophagitis; R07.89 Other chest pain; M75.81 Other shoulder lesions, right shoulder; Z79.84 Long term (current) use of oral hypoglycemic drugs; Z87.891 Personal history of nicotine dependence; Z91.040 Latex allergy status; Z88.8 Allergy status to other drugs, medicaments and biological substances; Z91.048 Other nonmedicinal substance allergy status
CPT/HCPCS: 36415; 36430; 71046; 73010; 85025; 86850; 86900; 86901; 86902; 86922; P9016

== ENCOUNTER → 2021-07-22 | Outpatient (CLI) | payer MEDICARE, BC ==
[~2021-07-22] MED LIST changes: +PEPCID40 MG PO
== END | disposition home or self-care (01) ==
LOC: LAB SHORT 11:30 → LAB 11:30
DX: E11.9 Type 2 diabetes mellitus without complications (principal); E03.8 Other specified hypothyroidism; I10 Essential (primary) hypertension; M10.9 Gout, unspecified; N39.0 Urinary tract infection, site not specified; R19.7 Diarrhea, unspecified
CPT/HCPCS: 83993

== ENCOUNTER 2022-02-25 15:50 | Emergency (ER) | payer MEDICARE, BC ==
[~2022-02-25] VITALS: Ht 165.1 cm; Wt 70.3 kg
[2022-02-25 17:14] LABS: BASOPHILS ABSOLUTE AUTO 0.02 K/mm3 (0.00-0.23); BASOPHILS PERCENT AUTO 1 % (0-2); EOSINOPHILS ABSOLUTE AUTO 0.05 K/mm3 (0.00-0.68); EOSINOPHILS PERCENT AUTO 1 % (0-6); Hematocrit 28.4 % (33.0-51.0); Hemoglobin 9.1 g/dL (11.5-16.0); IMMATURE GRAN ABSOLUTE AUTO 0.05 K/mm3 (0.00-0.10); IMMATURE GRAN PERCENT AUTO 1 % (0-1); LYMPHOCYTES ABSOLUTE AUTO 1.32 K/mm3 (0.84-5.20); LYMPHOCYTES PERCENT AUTO 33 % (21-46); MONOCYTES ABSOLUTE AUTO 0.32 K/mm3 (0.16-1.47); MONOCYTES PERCENT AUTO 8 % (4-13); Mean Corpuscular HGB 34.9 pg (26.0-34.0); Mean Corpuscular Volume 109 fL (80-100); Mean Platelet Volume 10.5 fL (9.1-12.4); NEUTROPHILS ABSOLUTE AUTO 2.23 K/mm3 (1.96-9.15); NEUTROPHILS PERCENT AUTO 56 % (41-73); NRBC ABSOLUTE 0.02 K/mm3 (0.00-0.02); NRBC Auto 0.5 /100 WBC (0.0-0.2); Platelet Count 80 K/mm3 (150-400); RDW Coefficient Variation 16.5 % (11.7-14.2); Red Blood Cell Count 2.61 M/mm3 (3.80-5.20); White Blood Cell Count 3.99 K/mm3 (4.00-11.30)
[2022-02-25 17:32] LABS: Albumin, Blood 4.4 g/dL (3.4-5.0); Albumin/Globulin Ratio 1.6 (0.8-1.8); Bilirubin, Total 0.6 mg/dL (0.1-1.0); Bun/Creatinine Ratio 22.3 (12.0-20.0); Creatinine, Blood 1.21 mg/dL (0.40-1.00); Globulin, Blood 2.7 g/dL (2.2-4.0); Potassium, Blood 4.1 mmol/L (3.5-5.5); Total Protein, Blood 7.1 g/dL (6.4-8.2)
[2022-02-25] MEDS ORDERED: Percocet 5-3251 EACH PO (18:28)
[2022-02-25] MEDS ORDERED: LIDO700A20 TOP (18:34)
== END 2022-02-25 20:08 | disposition home or self-care (01) ==
LOC: ER 15:50
PROVIDERS: Physician Assistant
DX: M25.512 Pain in left shoulder (principal); I25.2 Old myocardial infarction; Z91.040 Latex allergy status; Z88.1 Allergy status to other antibiotic agents; Z88.8 Allergy status to other drugs, medicaments and biological substances; Z87.891 Personal history of nicotine dependence; Z79.899 Other long term (current) drug therapy
CPT/HCPCS: 36415; 71045; 80053; 83690; 84484; 85025; 93005; 93010; 96374; 99284-25; A9270; J1885

== ENCOUNTER → 2022-06-27 | Outpatient (CLI) | payer MEDICARE, BC ==
[~2022-06-27] MED LIST changes: +LIDO700A20 TOP; +Percocet 5-3251 EACH PO
[2022-06-27 10:43] LABS: BASOPHILS ABSOLUTE AUTO 0.02 K/mm3 (0.00-0.23); BASOPHILS PERCENT AUTO 0 % (0-2); EOSINOPHILS ABSOLUTE AUTO 0.01 K/mm3 (0.00-0.68); EOSINOPHILS PERCENT AUTO 0 % (0-6); Hematocrit 29.4 % (33.0-51.0); Hemoglobin 9.7 g/dL (11.5-16.0); IMMATURE GRAN ABSOLUTE AUTO 0.02 K/mm3 (0.00-0.10); IMMATURE GRAN PERCENT AUTO 0 % (0-1); LYMPHOCYTES ABSOLUTE AUTO 0.99 K/mm3 (0.84-5.20); LYMPHOCYTES PERCENT AUTO 22 % (21-46); MONOCYTES ABSOLUTE AUTO 0.23 K/mm3 (0.16-1.47); MONOCYTES PERCENT AUTO 5 % (4-13); Mean Corpuscular HGB 33.8 pg (26.0-34.0); Mean Corpuscular Volume 102 fL (80-100); Mean Platelet Volume 9.9 fL (9.1-12.4); NEUTROPHILS ABSOLUTE AUTO 3.25 K/mm3 (1.96-9.15); NEUTROPHILS PERCENT AUTO 72 % (41-73); Platelet Count 76 K/mm3 (150-400); RDW Coefficient Variation 20.8 % (11.7-14.2); RDW Standard Deviation 77.3 fL (35.1-46.3); Red Blood Cell Count 2.87 M/mm3 (3.80-5.20); White Blood Cell Count 4.52 K/mm3 (4.00-11.30)
[2022-06-27 10:49] LABS: Bun/Creatinine Ratio 16.2 (12.0-20.0); Calcium, Blood 8.2 mg/dL (8.5-10.1); Creatinine, Blood 1.11 mg/dL (0.40-1.00); Potassium, Blood 3.5 mmol/L (3.5-5.5)
[2022-06-27 20:05] LABS: Adenovirus F 40/41 Not Detected (NOT DETECT); Astrovirus Not Detected (NOT DETECT); Campylobacter Sp Not Detected (NOT DETECT); Cryptosporidium Not Detected (NOT DETECT); Cyclospora Cayetanensis Not Detected (NOT DETECT); E. Coli O157 Not Detected (NOT DETECT); Entamoeba Histolytica Not Detected (NOT DETECT); Enteroaggregative E. coli-EAEC Not Detected (NOT DETECT); Enteropathogenic E. coli-EPEC Not Detected (NOT DETECT); Enterotoxigenic E. coli-ETEC Not Detected (NOT DETECT); Giardia Lamblia Not Detected (NOT DETECT); Norovirus GI/GII Not Detected (NOT DETECT); Plesiomonas Shigelloides Not Detected (NOT DETECT); Rotavirus A Not Detected (NOT DETECT); Salmonella Sp Not Detected (NOT DETECT); Sapovirus Not Detected (NOT DETECT); Shiga Toxin-prod E. coli-STEC Not Detected (NOT DETECT); Shigella/Enteroin E. coli-EIEC Not Detected (NOT DETECT); Vibrio Cholerae Not Detected (NOT DETECT); Vibrio Sp Not Detected (NOT DETECT); Yersinia Enterocolitica Not Detected (NOT DETECT)
== END | disposition home or self-care (01) ==
LOC: LAB 10:39 → LAB SHORT 10:39
PROVIDERS: Physician Assistant
DX: R30.0 Dysuria (principal); R19.7 Diarrhea, unspecified
CPT/HCPCS: 80048; 85025; 87086; 87507

== ENCOUNTER 2022-07-12 04:34 | Emergency (ER) | payer MEDICARE, BC ==
[~2022-07-12] VITALS: Ht 165.1 cm; Wt 61.2 kg
[2022-07-12 05:54] LABS: BASOPHILS PERCENT AUTO 0 % (0-2); EOSINOPHILS ABSOLUTE AUTO 0.02 K/mm3 (0.00-0.68); EOSINOPHILS PERCENT AUTO 1 % (0-6); Hematocrit 22.1 % (33.0-51.0); Hemoglobin 6.9 g/dL (11.5-16.0); IMMATURE GRAN ABSOLUTE AUTO 0.02 K/mm3 (0.00-0.10); IMMATURE GRAN PERCENT AUTO 1 % (0-1); LYMPHOCYTES ABSOLUTE AUTO 0.34 K/mm3 (0.84-5.20); LYMPHOCYTES PERCENT AUTO 15 % (21-46); MONOCYTES ABSOLUTE AUTO 0.27 K/mm3 (0.16-1.47); MONOCYTES PERCENT AUTO 12 % (4-13); Mean Corpuscular HGB 33.2 pg (26.0-34.0); Mean Corpuscular HGB Conc 31.2 g/dL (31.5-36.5); Mean Corpuscular Volume 106 fL (80-100); NEUTROPHILS ABSOLUTE AUTO 1.66 K/mm3 (1.96-9.15); NEUTROPHILS PERCENT AUTO 72 % (41-73); NRBC ABSOLUTE 0.02 K/mm3 (0.00-0.02); NRBC Auto 0.9 /100 WBC (0.0-0.2); RDW Coefficient Variation 21.7 % (11.7-14.2); RDW Standard Deviation 83.3 fL (35.1-46.3); Red Blood Cell Count 2.08 M/mm3 (3.80-5.20); White Blood Cell Count 2.31 K/mm3 (4.00-11.30)
[2022-07-12 06:07] LABS: Platelet Count 28 K/mm3 (150-400)
[2022-07-12 06:09] LABS: Albumin/Globulin Ratio 1.1 (0.8-1.8); Bilirubin, Total 0.9 mg/dL (0.1-1.0); Bun/Creatinine Ratio 20.3 (12.0-20.0); Calcium, Blood 7.4 mg/dL (8.5-10.1); Creatinine, Blood 1.18 mg/dL (0.40-1.00); Globulin, Blood 2.8 g/dL (2.2-4.0); Potassium, Blood 3.5 mmol/L (3.5-5.5); Total Protein, Blood 5.8 g/dL (6.4-8.2)
[2022-07-12 13:15] LABS: Adenovirus F 40/41 Not Detected (NOT DETECT); Astrovirus Not Detected (NOT DETECT); Campylobacter Sp Not Detected (NOT DETECT); Cryptosporidium Not Detected (NOT DETECT); Cyclospora Cayetanensis Not Detected (NOT DETECT); E. Coli O157 Not Detected (NOT DETECT); Entamoeba Histolytica Not Detected (NOT DETECT); Enteroaggregative E. coli-EAEC Not Detected (NOT DETECT); Enteropathogenic E. coli-EPEC Not Detected (NOT DETECT); Enterotoxigenic E. coli-ETEC Not Detected (NOT DETECT); Giardia Lamblia Not Detected (NOT DETECT); Norovirus GI/GII Not Detected (NOT DETECT); Plesiomonas Shigelloides Not Detected (NOT DETECT); Rotavirus A Not Detected (NOT DETECT); Salmonella Sp Not Detected (NOT DETECT); Sapovirus Not Detected (NOT DETECT); Shiga Toxin-prod E. coli-STEC Not Detected (NOT DETECT); Shigella/Enteroin E. coli-EIEC Not Detected (NOT DETECT); Vibrio Cholerae Not Detected (NOT DETECT); Vibrio Sp Not Detected (NOT DETECT); Yersinia Enterocolitica Not Detected (NOT DETECT)
== END 2022-07-12 18:45 | disposition home or self-care (01) ==
LOC: ER 04:34
PROVIDERS: Emergency Medicine
DX: D64.9 Anemia, unspecified (principal); K52.9 Noninfective gastroenteritis and colitis, unspecified; Z87.891 Personal history of nicotine dependence
CPT/HCPCS: 36415; 80053; 83690; 85025; 86850; 86900; 86901; 86922; 87507; J1170; J7030; P9016

== ENCOUNTER 2022-07-17 15:13 | Inpatient (IN) | payer MEDICARE, BC ==
[~2022-07-17] VITALS: Ht 165.1 cm; Wt 70.4 kg
[2022-07-17 15:35] LABS: BASOPHILS PERCENT AUTO 0 % (0-2); EOSINOPHILS ABSOLUTE AUTO 0.01 K/mm3 (0.00-0.68); EOSINOPHILS PERCENT AUTO 0 % (0-6); Hematocrit 28.3 % (33.0-51.0); Hemoglobin 9.1 g/dL (11.5-16.0); IMMATURE GRAN ABSOLUTE AUTO 0.04 K/mm3 (0.00-0.10); IMMATURE GRAN PERCENT AUTO 1 % (0-1); LYMPHOCYTES PERCENT AUTO 6 % (21-46); MONOCYTES PERCENT AUTO 6 % (4-13); Mean Corpuscular HGB 32.6 pg (26.0-34.0); Mean Corpuscular HGB Conc 32.2 g/dL (31.5-36.5); Mean Corpuscular Volume 101 fL (80-100); NEUTROPHILS ABSOLUTE AUTO 4.33 K/mm3 (1.96-9.15); NEUTROPHILS PERCENT AUTO 87 % (41-73); NRBC ABSOLUTE 0.02 K/mm3 (0.00-0.02); NRBC Auto 0.4 /100 WBC (0.0-0.2); RDW Coefficient Variation 22.8 % (11.7-14.2); RDW Standard Deviation 83.6 fL (35.1-46.3); Red Blood Cell Count 2.79 M/mm3 (3.80-5.20); White Blood Cell Count 4.98 K/mm3 (4.00-11.30)
[2022-07-17 15:48] LABS: Albumin, Blood 2.6 g/dL (3.4-5.0); Albumin/Globulin Ratio 0.8 (0.8-1.8); Bilirubin, Total 0.5 mg/dL (0.1-1.0); Bun/Creatinine Ratio 19.9 (12.0-20.0); Calcium, Blood 6.7 mg/dL (8.5-10.1); Creatinine, Blood 2.92 mg/dL (0.40-1.00); Globulin, Blood 3.2 g/dL (2.2-4.0); Platelet Count 12 K/mm3 (150-400); Total Protein, Blood 5.8 g/dL (6.4-8.2)
[2022-07-17 16:31] LABS: Influenza A, PCR NEGATIVE (NEGATIVE); Influenza B, PCR NEGATIVE (NEGATIVE); Resp Syncytial Virus, PCR NEGATIVE (NEGATIVE); SARS-Cov-2 (COVID-19) PCR, MMC NEGATIVE (NEGATIVE)
--- NOTE | 2022-07-17 23:20 | NUR ---
TRASNFUSION REACTION/PT CHANGE PT AOX4, BEGINS C/O REDNESS AND ITCHING TO PALMS OF HANDS, MOTTLED RASH NOTED TO PALMS WELL. DR KIDD CALLED AND NOTIFIED ORDERS OBTAINED FOR PO BENADRYL AND LOPRESSOR FOR PERSISTING HTN AND ORDER TO CONTINUE WITH PLATELET ADMIN FOR NOW. DR KIDD CALLED BACK SHORTLY AFTER THIS RN TO ROOM WITH ORAL BENADRYL, PT APPEARS WORSENINGLY TACHYPNEIC AUDIBLE CRACKLES HEARD SEVERAL FEET FROM PT, PT IS ANXIOUS, STATES BREATHING FEELS WORSE, PT CONTINUES ON 9 L HIGH FLOW SATS REMAIN AT 92-96% AT THIS TIME. ORDERS OBTAINED FROM DR KIDD TO GO AHEAD AND DC PLATELETS (WHICH REMAINED STOP FROM INITIAL SX/NOT RESTARTED YET), AND ORAL PREDNISONE, 25 MG OF IV BENADRYL. 0015 PT SIGNIFICANTLY WORSENS, REPORTING DISTRESS, APPEARING PALE, SBP DROPS BY 30 MMHG W/O LOPRESSOR DOSE, PT SATS BEGIN FALLING TO 80'S ON 15 L HIGH FLOW O2, THIS RN CALLS FOR BIPAP FROM RT, ZRAI ICU FINISHER FINE DIAMOND DIES AND FRANCESCA FINISHER FINE DIAMOND DIES AT BEDSIDE AND ZARI RN OBTAINS ORDERS FROM DR WINTER FOR IV SOLUMEDROL AND PEPCID INSTEAD OF PO PREDNISONE. THIS RN STOPS VANCO AND NS UNTIL SX OF REACTION CAN BE RESOLVED.
[2022-07-18 01:01] LABS: BASOPHILS ABSOLUTE AUTO 0.01 K/mm3 (0.00-0.23); BASOPHILS PERCENT AUTO 0 % (0-2); EOSINOPHILS ABSOLUTE AUTO 0.01 K/mm3 (0.00-0.68); EOSINOPHILS PERCENT AUTO 0 % (0-6); Hematocrit 28.4 % (33.0-51.0); Hemoglobin 9.4 g/dL (11.5-16.0); IMMATURE GRAN ABSOLUTE AUTO 0.04 K/mm3 (0.00-0.10); IMMATURE GRAN PERCENT AUTO 1 % (0-1); LYMPHOCYTES ABSOLUTE AUTO 0.47 K/mm3 (0.84-5.20); LYMPHOCYTES PERCENT AUTO 10 % (21-46); MONOCYTES ABSOLUTE AUTO 0.24 K/mm3 (0.16-1.47); MONOCYTES PERCENT AUTO 5 % (4-13); Mean Corpuscular HGB Conc 33.1 g/dL (31.5-36.5); Mean Corpuscular Volume 100 fL (80-100); NEUTROPHILS PERCENT AUTO 83 % (41-73); NRBC ABSOLUTE 0.02 K/mm3 (0.00-0.02); NRBC Auto 0.4 /100 WBC (0.0-0.2); RDW Coefficient Variation 22.2 % (11.7-14.2); RDW Standard Deviation 79.2 fL (35.1-46.3); Red Blood Cell Count 2.85 M/mm3 (3.80-5.20); White Blood Cell Count 4.57 K/mm3 (4.00-11.30)
[2022-07-18 01:22] LABS: Bun/Creatinine Ratio 21.9 (12.0-20.0); Calcium, Blood 6.6 mg/dL (8.5-10.1); Creatinine, Blood 2.69 mg/dL (0.40-1.00); Platelet Count 12 K/mm3 (150-400)
[2022-07-18 02:32] LABS: Source, Urine Straight Cath
[2022-07-18 02:36] LABS: Bilirubin, Urine Neg (Neg); Blood, Urine 5+ (Neg); Glucose Qualitative, Urine Neg (Neg); Ketones, Urine Neg (Neg); Leukocyte Esterase, Urine 3+ (Neg); Nitrite, Urine Pos (Neg); Protein, Urine 3+ (Neg); Urobilinogen, Urine NORM (Normal)
[2022-07-18 02:37] LABS: Appearance, Urine Hazy (Clear); Color, Urine Yellow (P-Yellow)
[2022-07-18 02:59] LABS: Bacteria Mod /hpf; Squamous Epithelial Cells Not Seen /hpf (Few); White Blood Cells, Urine TNTC /hpf (0-5)
--- NOTE | 2022-07-18 07:21 | NUR ---
SHIFT SUMMARY PT AOX4 T/O SHIFT. PT HAD DIFFICULTY BREATHING AND WORSENED CRACKLES FOLLOWING ONSET OF ITCHING AND REDNESS TO PALMS DURING TRANSFUSION OF PLATELETS. SEE PRIOR NOTES. PT IMPROVED WITH BIPAP 12/6 50% AND MEDICATIONS PER ORDERS. PT UNABLE TO TOLERATE BEING OFF OF BIPAP FOR VERY LONG, WHEN OFF OF BIPAP 9-15 L IS NEEDED THROUGH HIGH FLOW CANNULA. PT IS INCONTINENT OF URINE, PUREWICK IN PLACE. URGE TO HAVE A BM FREQUENTLY THIS AM BUT NO STOOL SINCE COMING TO UNIT FROM ER. POWERGLIDE WAS INSERTED INTO WILLIAMS BY REAL ESTATE EXECUTIVE ASSISTANT BUT DID NOT REMAIN PATENT, WAS DIFFICULT TO PLACE. IV'S IN R ARM ARE SALINE LOCKED. PT IS REQUESTING OXYCODONE FOR DISCOMFORT THIS AM. THIS RN RELAYS NEED FOR VERIFICATION OF HOME DOSE AND ORDER FROM A PROVIDER.
[2022-07-18 15:22] LABS: Source, Urine Foley catheter
[2022-07-18 15:42] LABS: Appearance, Urine Cloudy (Clear); Bilirubin, Urine Neg (Neg); Blood, Urine 5+ (Neg); Glucose Qualitative, Urine Neg (Neg); Ketones, Urine Neg (Neg); Leukocyte Esterase, Urine 3+ (Neg); Nitrite, Urine Neg (Neg); Protein, Urine 3+ (Neg); Urobilinogen, Urine NORM (Normal); pH, Urine 6.5 (5.0-8.0)
[2022-07-18 16:31] LABS: Color, Urine Pale Yellow (P-Yellow)
[2022-07-18 16:33] LABS: Amorphous Light (0-Heavy); Bacteria Many /hpf; Mucus Light (0-Heavy); Red Blood Cells, Urine 50-100 /hpf (0-2); Squamous Epithelial Cells Rare /hpf (Few); Transitional Epithelial Cells Rare /hpf (0-Rare); White Blood Cells, Urine TNTC /hpf (0-5)
--- NOTE | 2022-07-18 18:28 | NUR ---
SHIFT SUMMARY; ASSUMED CARE AT 0700, A/A/OX4. ALTERNATING BETWEEN BIPAP AND AIRVO. DESATS TO LOW 80'S WITH EXERTION AND BECOMES VISIBLY SOB. ELKINS CATH PLACED TODAY PER ORDER FOR STRICT OUTPUT, L/S COARSE T/O. ANXIOUS AT TIMES AND PULLING AT BIPAP. TELEPHONE ORDER FROM DR. SIMS FOR PO XANAX. SPOUSE AT BEDSIDE OFF AND ON DURING SHIFT, WILL CONTINUE TO MONITOR AND TREAT UNTIL CHANGE OF SHIFT.
[2022-07-19 03:29] LABS: Hematocrit 25.4 % (33.0-51.0); Hemoglobin 8.2 g/dL (11.5-16.0); Mean Corpuscular HGB 32.3 pg (26.0-34.0); Mean Corpuscular HGB Conc 32.3 g/dL (31.5-36.5); Mean Corpuscular Volume 100 fL (80-100); NRBC ABSOLUTE 0.07 K/mm3 (0.00-0.02); NRBC Auto 1.3 /100 WBC (0.0-0.2); RDW Coefficient Variation 22.3 % (11.7-14.2); Red Blood Cell Count 2.54 M/mm3 (3.80-5.20); White Blood Cell Count 5.22 K/mm3 (4.00-11.30)
[2022-07-19 03:34] LABS: Platelet Count 8 K/mm3 (150-400)
[2022-07-19 03:49] LABS: Bun/Creatinine Ratio 26.2 (12.0-20.0); Calcium, Blood 6.1 mg/dL (8.5-10.1); Creatinine, Blood 2.9 mg/dL (0.40-1.00); Potassium, Blood 4.4 mmol/L (3.5-5.5)
--- NOTE | 2022-07-19 06:17 | NUR ---
SHIFT SUMMARY PATIENT ALERT AND ORIENTED, ABLE TO MAKE NEEDS KNOWN TO STAFF. VITALS STABLE, PATIENT ON AIRVO THROUGHOUT THE NIGHT WITH O2 SAT >90%. PATIENT DECLINED TO WEAR BIPAP DURING THE NIGHT. EDUCATION PROVIDED. PATIENT ONLY REPORTS SOB WITH SIGNIFICANT ACTIVITY. ELKINS IN PLACE DRAINING DARK YELLOW URINE TO GRAVITY. NO OTHER SIGNIFICANT CHANGES THIS SHIFT, WILL REPORT TO DAY SHIFT RN.
[2022-07-19 07:07] LABS: Performing Lab BLOODWORKS; Test Name ABID
[2022-07-19 18:29] LABS: Phosphorus, Blood 6.5 mg/dL (2.5-4.9)
--- NOTE | 2022-07-19 18:33 | NUR ---
SHIFT SUMMARY PT A&OX4. SP02>90% STARTED ON AIRVO AT START OF SHIFT, CURRENTLY DECREASED TO HUMIDIFIED HI PINO 7L. TELEMETRY SHOWED MOSTLY NSR, HR 80'S. ELKINS CATHETER DRAINING YELLOW URINE WITH SEDIMENT TO GRAVITY. NO BM THIS SHIFT. PT C/O OF 10/10 HEADACHE PAIN THIS AFTERNOON. TYLENOL GIVEN PER EMAR AND CALL PLACED TO MD CLAYTON TO ASK FOR ORDER OF HOME PAIN MED: PERCOCET. MD CLAYTON W/ ORDERS, SEE EMAR. PT'S PAIN RESOLVED W/ TYLENOL ONLY. 1 UNIT PLATLETS INFUSED PER ORDERS AFTER CLARIFICATION W/ LAB AND D/T PREVIOUS PLATELET INFUSION REACTION. NO REACTION NOTED THIS INFUSION. AND DOG AT BEDSIDE THIS AFTERNOON. CALL LIGHT IN REACH.
--- NOTE | 2022-07-20 00:45 | NUR ---
UPDATE PATIENT CALLING OUT STATING "I'M GETTING OUT OF THIS BED, I CAN'T STAY HERE ANY LONGER. I AM SO CLAUSTROPHOBIC IN THIS ROOM". THIS RN AT BEDSIDE DEESCALATING AND PROVIDING COMFORT TO PATIENT. PATIENT SITTING UP AT EDGE OF BED. MEDICATED PER EMAR FOR ANXIETY. PATIENT STATING THAT SHE NEEDS TO GO HOME BECAUSE SHE DOESN'T WANT TO LIVE THIS WAY ANYMORE. THIS RN ASKED PATIENT IF SHE WOULD ENJOY A VISIT FROM PALLIATIVE CARE DURING DAY SHIFT, PATIENT DECLINED AT THIS TIME. PATIENT PROVIDED WITH CROSS WORD PUZZLES TO EASE ANXIETY. THIS RN AT BEDSIDE FOR APPROXIMATELY 30 MINUTES WHILE PATIENT VOICED CONCERNS ABOUT WHAT WILL HAPPEN AFTER DISCHARGE AND HOW SHE WANTS TO LIVE THE REST OF HER LIFE. PATIENT STATING "I DON'T WANT TO THINK ABOUT HOSPICE RIGHT NOW, I WANT TO FIGHT THIS CANCER BUT I DON'T KNOW HOW LONG I CAN". PATIENT PROVIDED WITH TISSUES FOR TEARS. ANXIETY EASED PATIENT VOICED CONCERNS. PATIENT DANGLING AT SIDE OF BED DOING CROSSWORDS.
[2022-07-20 05:27] LABS: Hematocrit 26.8 % (33.0-51.0); Mean Corpuscular HGB 34.1 pg (26.0-34.0); Mean Corpuscular HGB Conc 33.6 g/dL (31.5-36.5); Mean Corpuscular Volume 102 fL (80-100); NRBC ABSOLUTE 0.07 K/mm3 (0.00-0.02); NRBC Auto 1.7 /100 WBC (0.0-0.2); RDW Coefficient Variation 22.6 % (11.7-14.2); Red Blood Cell Count 2.64 M/mm3 (3.80-5.20)
[2022-07-20 05:48] LABS: Platelet Count 35 K/mm3 (150-400)
--- NOTE | 2022-07-20 05:57 | NUR ---
SHIFT SUMMARY PATIENT ALERT AND ORIENTED, ABLE TO MAKE NEEDS KNOWN TO STAFF. VSS, PATIENT ON AIRVO DURING THE NIGHT, 40L 40% FIO2, PATIENT DESATS WITH MINIMAL ACTIVITY BUT IS ABLE TO RECOVER QUICKLY. ELKINS IN PLACE DRAINING YELLOW URINE WITH SEDIMENT. PERIOD OF ANXIETY DURING THE NIGHT, SEE PREVIOUS NOTE. NO OTHER SIGNIFICANT CHANGES THIS SHIFT, WILL REPORT TO DAY SHIFT RN.
[2022-07-20 06:55] LABS: Albumin, Blood 2.6 g/dL (3.4-5.0); Anion Gap 8 mmol/L (6-16); Blood Urea Nitrogen 83 mg/dL (8-24); CO2, Blood 21 mmol/L (21-32); Calcium, Blood 6.8 mg/dL (8.5-10.1); Chloride, Blood 110 mmol/L (98-108); Creatinine, Blood 2.86 mg/dL (0.40-1.00); Glomerular Filtration Rate 16 (60-); Glucose, Blood 122 mg/dL (70-99); Phosphorus, Blood 5.9 mg/dL (2.5-4.9); Potassium, Blood 4.6 mmol/L (3.5-5.5); Sodium, Blood 139 mmol/L (136-145)
[2022-07-21 04:37] LABS: Hematocrit 24.7 % (33.0-51.0); Mean Corpuscular HGB 33.1 pg (26.0-34.0); Mean Corpuscular HGB Conc 32.4 g/dL (31.5-36.5); Mean Corpuscular Volume 102 fL (80-100); NRBC ABSOLUTE 0.05 K/mm3 (0.00-0.02); NRBC Auto 1.5 /100 WBC (0.0-0.2); RDW Coefficient Variation 22.6 % (11.7-14.2); RDW Standard Deviation 81.5 fL (35.1-46.3); Red Blood Cell Count 2.42 M/mm3 (3.80-5.20); White Blood Cell Count 3.39 K/mm3 (4.00-11.30)
[2022-07-21 04:53] LABS: Albumin, Blood 2.6 g/dL (3.4-5.0); Anion Gap 9 mmol/L (6-16); Blood Urea Nitrogen 82 mg/dL (8-24); Bun/Creatinine Ratio 30.8 (12.0-20.0); CO2, Blood 22 mmol/L (21-32); Calcium, Blood 6.6 mg/dL (8.5-10.1); Chloride, Blood 111 mmol/L (98-108); Creatinine, Blood 2.66 mg/dL (0.40-1.00); Glomerular Filtration Rate 18 (60-); Glucose, Blood 123 mg/dL (70-99); Phosphorus, Blood 5.1 mg/dL (2.5-4.9); Potassium, Blood 4.5 mmol/L (3.5-5.5); Sodium, Blood 142 mmol/L (136-145)
[2022-07-21 04:55] LABS: Platelet Count 26 K/mm3 (150-400)
--- NOTE | 2022-07-21 05:28 | NUR ---
PATIENT IS AOX4, SOB WITH ACTIVITY, WEARING 7LNC. AMBULATES WELL TO WITH STANDBY ASSIST AND EXTRA O2 SUPPORT. GAVE PRN XANAX AND PERCOSET WITH RELIEF. PT C/O NEUROPATHY PAIN. PLATELETS REMAIN LOW AT 26.
[2022-07-21 11:37] LABS: Result SEE REPORT
--- NOTE | 2022-07-21 12:24 | NUR ---
Pt is alert, oriented, cooperative and pleasantly conversant this morning. Ambulatory to the bathroom to void and have BM. she is using the walker for activity, which she says she also uses at home for ambulation. No assistance needed except for the oxygen tubing/spo2 cord
--- NOTE | 2022-07-21 15:46 | NUR ---
Ambulatory to the bathroom to void. shortness of breath witht activity, and spo2 dropped to 85% while on 6 l/min delivery. Recovery within 2-3 minutes after sitting down to rest.
--- NOTE | 2022-07-21 16:34 | NUR ---
The pt was medicated for right side pain this morning at approx 0800. It was relieved after the Percocet. This afternoon she again c/o pain in the same area, lower right side, below her rib cage. STates that it is worse when she takes a deep breath, and describes it as sharp. She was given xanax since it was not yet time for her Percocet. After eating lunch she was napping until awakening around 1500. AT that time she said she was having a little bit of pain again, but refused the pain medication at that time.
[2022-07-22 04:08] LABS: Hematocrit 25.1 % (33.0-51.0); Mean Corpuscular HGB 33.1 pg (26.0-34.0); Mean Corpuscular HGB Conc 31.9 g/dL (31.5-36.5); Mean Corpuscular Volume 104 fL (80-100); NRBC ABSOLUTE 0.02 K/mm3 (0.00-0.02); NRBC Auto 0.7 /100 WBC (0.0-0.2); RDW Coefficient Variation 23.2 % (11.7-14.2); RDW Standard Deviation 84.5 fL (35.1-46.3); Red Blood Cell Count 2.42 M/mm3 (3.80-5.20); White Blood Cell Count 2.85 K/mm3 (4.00-11.30)
[2022-07-22 05:36] LABS: Platelet Count 28 K/mm3 (150-400)
--- NOTE | 2022-07-22 06:19 | NUR ---
PATIENT ANXIOUS AT TIMES, X1 XANAX GIVEN. RESPONDED WELL; EMOTIONAL SUPPORT PROVIDED. PATIENT IS ABLE TO AMBULATE WITH WALKER, NEEDS INCREASED O2 WITH ACTIVITY. OXYGEN IS 5LNC WHEN IN BED. SATS REMAIN ABOVE 92%. AAOX4. PATIENT REPORTS PAIN AND IS MEDICATED WITH PRN'S PER MAR AND REPOSITIONED NEEDED.
--- NOTE | 2022-07-22 07:19 | NUR ---
PT is awake, alert and oriented completely. States that she has still been having the right side pain, just under her breast, and that it is worse than yesterday. Describes it as sharp, worse with deep inspiration. Noc shift reports that she was medicated twice with Percocet and once with xanax. Pt states that she takes 5-10 mg oxycodone at home for her cancer pain. She is not in respiratory distress, but is tachypneic at RR 24-28/min and requiring 5 L of oxygen at rest to keep spo2 greater than 90%.
--- NOTE | 2022-07-22 09:59 | NUR ---
Call to Dr. Orellana to request extra dose of percocet, time frame was q6 h prn; doctor changed the frequency to q4 prn. Extra dose given at this time. Pt states pain is with deep inspiration, and is sharp and 8/10. Chest xray was completed, no results posted yet.
--- NOTE | 2022-07-22 11:43 | NUR ---
Telephone report was given to Josefa Drew RN. Pt will be transferred to room 336 on medical floor.
--- NOTE | 2022-07-22 12:13 | NUR ---
Pt transferred up to medical floor in wheelchair at this time.
[2022-07-22 16:58] LABS: Bun/Creatinine Ratio 32.1 (12.0-20.0); Calcium, Blood 7.2 mg/dL (8.5-10.1); Creatinine, Blood 2.43 mg/dL (0.40-1.00); Potassium, Blood 4.9 mmol/L (3.5-5.5)
--- NOTE | 2022-07-22 17:36 | NUR ---
SHIFT SUMMARY PT A&OX4, MOOD UP AND DOWN T/O SHIFT. PT UPSET DUE TO NOT RECIEVING ENOUGH PILLOWS-PT PROVIDED W/ ADDITIONAL PILLOWS, PT APPEARS ANXIOUS AT TIMES. SPOUSE AT BEDSIDE DURING VISITING HOURS. TOLERATING PO INTAKE. CALL LIGHT W/ IN REACH. OXYGEN DECREASED TO 3.5L WHILE AT REST.
--- NOTE | 2022-07-23 03:54 | NUR ---
SHIFT SUMMARY NOC PT A/O X 4. PT PLEASANT AND COOPERATIVE WITH CARE. PT RECEIVING ABX FOR PNA AND UTI. PT IS 1PA WITH FWW TO BATHROOM. PT IS ON O2 3.5L/NC WHILE AT REST AND REQUIRES 7L/NC WHEN AMBULATING. PT WAS HAVING SOME ANXIETY AND REQUESTED PRN XANAX WHICH RELIEVED ANXIETY. PT HAS GONE TO BATHROOM FREQUENTLY X 5 SO FAR DURING SHIFT. PT IS CURRENTLY RESTING WITH BED IN LOWEST POSITION, BED ALARM ON, AND CALL LIGHT WITHIN REACH.
[2022-07-23 06:00] LABS: Hematocrit 27.3 % (33.0-51.0); Hemoglobin 8.4 g/dL (11.5-16.0); Mean Corpuscular HGB 32.7 pg (26.0-34.0); Mean Corpuscular HGB Conc 30.8 g/dL (31.5-36.5); Mean Corpuscular Volume 106 fL (80-100); RDW Coefficient Variation 23.2 % (11.7-14.2); RDW Standard Deviation 87.1 fL (35.1-46.3); Red Blood Cell Count 2.57 M/mm3 (3.80-5.20); White Blood Cell Count 3.35 K/mm3 (4.00-11.30)
[2022-07-23 06:30] LABS: Albumin, Blood 2.9 g/dL (3.4-5.0); Anion Gap 4 mmol/L (6-16); Blood Urea Nitrogen 70 mg/dL (8-24); Bun/Creatinine Ratio 35.5 (12.0-20.0); CO2, Blood 22 mmol/L (21-32); Calcium, Blood 7.5 mg/dL (8.5-10.1); Chloride, Blood 117 mmol/L (98-108); Creatinine, Blood 1.97 mg/dL (0.40-1.00); Glomerular Filtration Rate 25 (60-); Glucose, Blood 126 mg/dL (70-99); Phosphorus, Blood 3.5 mg/dL (2.5-4.9); Sodium, Blood 143 mmol/L (136-145)
[2022-07-23 07:21] LABS: Platelet Count 40 K/mm3 (150-400)
[2022-07-23] MEDS ORDERED: CALC.25 PO (15:58)
[2022-07-23] MEDS ORDERED: JUVEN PACKET1 EA10 PO (15:58)
[2022-07-23] MEDS ORDERED: ACET325 PO (15:58)
[2022-07-23] MEDS ORDERED: Calcium Carbon500 MG PO (15:59)
[2022-07-23] MEDS ORDERED: FAMO10 PO (16:00)
[2022-07-23] MEDS ORDERED: THERA-D2000 UNIT PO (16:01)
[2022-07-23] MEDS ORDERED: VISBIOME 112.51 EACH PO (16:01)
[2022-07-23] MEDS ORDERED: AMOCLA875 PO (16:02)
--- NOTE | 2022-07-23 16:58 | NUR ---
DISCHARGE DISCHARGE MEDICATIONS AND INSTRUCTIONS EXPLAINED TO PATIENT AND PATIENT'S . [facility]. IV REMOVED WITHOUT ISSUE. BELONGINGS WITH PATIENT. PATIENT TRANSFERED TO PRIVATE VEHICLE VIA WHEELCHAIR.
== END 2022-07-23 16:28 | disposition home health service (06) | DRG 871 ==
LOC: ER 15:13 → PCU 19:23 → MEDS 19:23 → PCU 21:28 → MEDS 07-22 12:23
PROVIDERS: Internal Medicine; Internal Medicine Nephrology; Student in an Organized Health Care Education/Training Program; ADMIT Hospitalist
PROC: 3E03329 Introduction of Other Anti-infective into Peripheral Vein, Percutaneous Approach (ICD-10-PCS; principal; 2022-07-17)
PROC: 30233R1 Transfusion of Nonautologous Platelets into Peripheral Vein, Percutaneous Approach (ICD-10-PCS; 2022-07-17)
PROC: 5A09357 Assistance with Respiratory Ventilation, Less than 24 Consecutive Hours, Continuous Positive Airway Pressure (ICD-10-PCS; 2022-07-17)
PROC: 5A0935A Assistance with Respiratory Ventilation, Less than 24 Consecutive Hours, High Flow/Velocity Cannula (ICD-10-PCS; 2022-07-18)
PROC: 0T9B70Z Drainage of Bladder with Drainage Device, Via Natural or Artificial Opening (ICD-10-PCS; 2022-07-18)
PROC: 30233R1 Transfusion of Nonautologous Platelets into Peripheral Vein, Percutaneous Approach (ICD-10-PCS; 2022-07-19)
DX: A41.9 Sepsis, unspecified organism (principal); D61.810 Antineoplastic chemotherapy induced pancytopenia; J96.01 Acute respiratory failure with hypoxia; J18.9 Pneumonia, unspecified organism; I21.A1 Myocardial infarction type 2; N17.9 Acute kidney failure, unspecified; C90.02 Multiple myeloma in relapse; Z94.84 Stem cells transplant status; E87.1 Hypo-osmolality and hyponatremia; I13.0 Hypertensive heart and chronic kidney disease with heart failure and stage 1 through stage 4 chronic kidney disease, or unspecified chronic kidney disease; D63.0 Anemia in neoplastic disease; Z20.822 Contact with and (suspected) exposure to COVID-19; I25.10 Atherosclerotic heart disease of native coronary artery without angina pectoris; R65.20 Severe sepsis without septic shock; Z66 Do not resuscitate; E55.9 Vitamin D deficiency, unspecified; F41.9 Anxiety disorder, unspecified; E03.9 Hypothyroidism, unspecified; E78.5 Hyperlipidemia, unspecified; N18.30 Chronic kidney disease, stage 3 unspecified; T80.89XA Other complications following infusion, transfusion and therapeutic injection, initial encounter; R91.8 Other nonspecific abnormal finding of lung field; M10.9 Gout, unspecified; F32.9 Major depressive disorder, single episode, unspecified; E11.22 Type 2 diabetes mellitus with diabetic chronic kidney disease; L29.8 Other pruritus; I50.9 Heart failure, unspecified; D63.1 Anemia in chronic kidney disease; Z95.5 Presence of coronary angioplasty implant and graft; Z90.710 Acquired absence of both cervix and uterus; Z90.49 Acquired absence of other specified parts of digestive tract; Z98.890 Other specified postprocedural states; Z87.891 Personal history of nicotine dependence; Z88.0 Allergy status to penicillin; Z88.1 Allergy status to other antibiotic agents; Z88.6 Allergy status to analgesic agent; Z88.4 Allergy status to anesthetic agent; Z88.8 Allergy status to other drugs, medicaments and biological substances; Z91.040 Latex allergy status; Z91.048 Other nonmedicinal substance allergy status; Z79.84 Long term (current) use of oral hypoglycemic drugs; Z79.890 Hormone replacement therapy; Z79.899 Other long term (current) drug therapy
CPT/HCPCS: 0241U; 36415; 36430; 71045; 71260; 76770; 80048; 80053; 80069; 81001; 82306; 82550; 82570; 83605; 83880; 83970; 84100; 84156; 84484; 85025; 85027; 86850; 86870; 86900; 86901; 86970; 87040; 87077; 87086; 87186; 93005; 93010; 93306; 94660; 94760; 94761; 94762; 96374-59; 96375-59; 99285-25; A9270; J0692; J1200; J1940; J2930; J3370; J7030; J7050; P9035; Q9967

== ENCOUNTER 2023-02-20 12:14 | Emergency (ER) | payer MEDICARE, BC ==
[~2023-02-20] VITALS: Ht 162.6 cm; Wt 65.8 kg
[~2023-02-20 12:14] MED LIST changes: +AMOCLA875 PO; +CALC.25 PO; +Calcium Carbon500 MG PO; +DOC250 PO; +FAMO10 PO; +JUVEN PACKET1 EA10 PO; +METO10 PO; +ONDA4ODT MM; +PROM12.5S PR; +SENNA LAXATIVE8.6 MG PO; +THERA-D2000 UNIT PO; +VISBIOME 112.51 EACH PO
[2023-02-20 12:37] VITALS: BP 185/89
[2023-02-20 13:15] LABS: Hematocrit 37.7 % (33.0-51.0); Hemoglobin 11.7 g/dL (11.5-16.0); Mean Corpuscular HGB 30.5 pg (26.0-34.0); Mean Corpuscular Volume 98 fL (80-100); Platelet Count 113 K/mm3 (150-400); RDW Coefficient Variation 17.2 % (11.7-14.2); Red Blood Cell Count 3.83 M/mm3 (3.80-5.20)
[2023-02-20 13:36] LABS: BAND PERCENT MAN 1 % (0-8); BASOPHILS ABSOLUTE MAN 0.09 K/mm3 (0.00-0.23); BASOPHILS PERCENT MAN 2 % (0-2); EOSINOPHILS PERCENT MAN 0 % (0-6); LYMPHOCYTES ABSOLUTE MAN 0.22 K/mm3 (0.84-5.20); LYMPHOCYTES PERCENT MAN 5 % (21-46); MONOCYTES ABSOLUTE MAN 0.22 K/mm3 (0.16-1.47); MONOCYTES PERCENT MAN 5 % (4-13); NEUTROPHILS ABSOLUTE MAN 3.96 K/mm3 (1.96-9.15); SEG NEUTROPHILS PERCENT MAN 87 % (41-73); TOTAL CELLS COUNTED 100
[2023-02-20 13:39] LABS: Albumin, Blood 3.5 g/dL (3.4-5.0); Albumin/Globulin Ratio 1.1 (0.8-1.8); Bilirubin, Total 0.8 mg/dL (0.1-1.0); Bun/Creatinine Ratio 21.7 (12.0-20.0); Calcium, Blood 8.5 mg/dL (8.5-10.1); Creatinine, Blood 1.52 mg/dL (0.40-1.00); Globulin, Blood 3.2 g/dL (2.2-4.0); Total Protein, Blood 6.7 g/dL (6.4-8.2)
== END 2023-02-20 14:13 | disposition left against medical advice (07) ==
LOC: ER 12:14
PROVIDERS: Student in an Organized Health Care Education/Training Program
DX: I10 Essential (primary) hypertension (principal); R51.9 Headache, unspecified; Z53.21 Procedure and treatment not carried out due to patient leaving prior to being seen by health care provider
CPT/HCPCS: 71046; 80053; 85025; 93005; 93010; 99284-25

== ENCOUNTER 2023-03-17 05:32 | Emergency (ER) | payer MEDICARE, BC ==
[~2023-03-17] VITALS: Ht 165.1 cm; Wt 62.6 kg
[2023-03-17 07:38] LABS: BASOPHILS ABSOLUTE AUTO 0.03 K/mm3 (0.00-0.23); BASOPHILS PERCENT AUTO 1 % (0-2); EOSINOPHILS PERCENT AUTO 0 % (0-6); Hematocrit 31.8 % (33.0-51.0); Hemoglobin 9.8 g/dL (11.5-16.0); IMMATURE GRAN ABSOLUTE AUTO 0.02 K/mm3 (0.00-0.10); IMMATURE GRAN PERCENT AUTO 1 % (0-1); LYMPHOCYTES ABSOLUTE AUTO 0.31 K/mm3 (0.84-5.20); LYMPHOCYTES PERCENT AUTO 8 % (21-46); MONOCYTES ABSOLUTE AUTO 0.32 K/mm3 (0.16-1.47); MONOCYTES PERCENT AUTO 8 % (4-13); Mean Corpuscular HGB 31.5 pg (26.0-34.0); Mean Corpuscular HGB Conc 30.8 g/dL (31.5-36.5); Mean Corpuscular Volume 102 fL (80-100); Mean Platelet Volume 11.1 fL (9.1-12.4); NEUTROPHILS ABSOLUTE AUTO 3.33 K/mm3 (1.96-9.15); NEUTROPHILS PERCENT AUTO 83 % (41-73); Platelet Count 106 K/mm3 (150-400); RDW Coefficient Variation 16.4 % (11.7-14.2); Red Blood Cell Count 3.11 M/mm3 (3.80-5.20); White Blood Cell Count 4.01 K/mm3 (4.00-11.30)
[2023-03-17 07:57] LABS: Albumin, Blood 3.2 g/dL (3.4-5.0); Albumin/Globulin Ratio 0.9 (0.8-1.8); Bilirubin, Total 0.5 mg/dL (0.1-1.0); Bun/Creatinine Ratio 23.3 (12.0-20.0); Calcium, Blood 8.2 mg/dL (8.5-10.1); Creatinine, Blood 1.33 mg/dL (0.40-1.00); Globulin, Blood 3.4 g/dL (2.2-4.0); Total Protein, Blood 6.6 g/dL (6.4-8.2)
[2023-03-17 08:15] LABS: BASOPHILS PERCENT MAN 0 % (0-2); EOSINOPHILS PERCENT MAN 0 % (0-6); LYMPHOCYTES PERCENT MAN 10 % (21-46); MONOCYTES ABSOLUTE MAN 0.16 K/mm3 (0.16-1.47); MONOCYTES PERCENT MAN 4 % (4-13); NEUTROPHILS ABSOLUTE MAN 3.44 K/mm3 (1.96-9.15); SEG NEUTROPHILS PERCENT MAN 86 % (41-73); TOTAL CELLS COUNTED 100
[2023-03-17] MEDS ORDERED: LIDO700A20 TOP (10:23)
[2023-03-17] MEDS ORDERED: OXYC5 PO (10:23)
[2023-03-17 11:30] VITALS: BP 173/95
== END 2023-03-17 11:32 | disposition home or self-care (01) ==
LOC: ER 05:32
PROVIDERS: Emergency Medicine
DX: S22.32XA Fracture of one rib, left side, initial encounter for closed fracture (principal); W18.30XA Fall on same level, unspecified, initial encounter; Z88.8 Allergy status to other drugs, medicaments and biological substances; Z88.5 Allergy status to narcotic agent; Z88.1 Allergy status to other antibiotic agents; Z88.6 Allergy status to analgesic agent; Z91.040 Latex allergy status; Z91.048 Other nonmedicinal substance allergy status; Z79.899 Other long term (current) drug therapy; Z79.84 Long term (current) use of oral hypoglycemic drugs; D64.9 Anemia, unspecified; I25.10 Atherosclerotic heart disease of native coronary artery without angina pectoris; E03.9 Hypothyroidism, unspecified; E11.22 Type 2 diabetes mellitus with diabetic chronic kidney disease; E78.5 Hyperlipidemia, unspecified; N18.9 Chronic kidney disease, unspecified; Z87.891 Personal history of nicotine dependence
CPT/HCPCS: 71045; 71260; 80053; 85025; 93005; 93010; 96374-59; 96376-59; 99284-25; J1170; Q9967

== ENCOUNTER 2023-03-20 00:26 | Emergency (ER) | payer MEDICARE, BC ==
[~2023-03-20] VITALS: Ht 165.1 cm; Wt 62.6 kg
[~2023-03-20 00:26] MED LIST changes: +OXYC5 PO
[2023-03-20 01:28] LABS: BASOPHILS ABSOLUTE AUTO 0.02 K/mm3 (0.00-0.23); BASOPHILS PERCENT AUTO 1 % (0-2); EOSINOPHILS ABSOLUTE AUTO 0.03 K/mm3 (0.00-0.68); EOSINOPHILS PERCENT AUTO 1 % (0-6); Hematocrit 28.6 % (33.0-51.0); IMMATURE GRAN ABSOLUTE AUTO 0.03 K/mm3 (0.00-0.10); IMMATURE GRAN PERCENT AUTO 1 % (0-1); LYMPHOCYTES ABSOLUTE AUTO 0.34 K/mm3 (0.84-5.20); LYMPHOCYTES PERCENT AUTO 8 % (21-46); MONOCYTES ABSOLUTE AUTO 0.36 K/mm3 (0.16-1.47); MONOCYTES PERCENT AUTO 8 % (4-13); Mean Corpuscular HGB 32.1 pg (26.0-34.0); Mean Corpuscular HGB Conc 31.5 g/dL (31.5-36.5); Mean Corpuscular Volume 102 fL (80-100); NEUTROPHILS ABSOLUTE AUTO 3.64 K/mm3 (1.96-9.15); NEUTROPHILS PERCENT AUTO 82 % (41-73); RDW Coefficient Variation 16.7 % (11.7-14.2); RDW Standard Deviation 62.8 fL (35.1-46.3); White Blood Cell Count 4.42 K/mm3 (4.00-11.30)
[2023-03-20 01:30] LABS: Mean Platelet Volume 11.4 fL (9.1-12.4); Platelet Count 100 K/mm3 (150-400)
[2023-03-20 01:40] LABS: Albumin, Blood 3.2 g/dL (3.4-5.0); Albumin/Globulin Ratio 0.9 (0.8-1.8); Bilirubin, Total 0.6 mg/dL (0.1-1.0); Bun/Creatinine Ratio 24.5 (12.0-20.0); Calcium, Blood 8.7 mg/dL (8.5-10.1); Creatinine, Blood 1.55 mg/dL (0.40-1.00); Globulin, Blood 3.5 g/dL (2.2-4.0); Potassium, Blood 5.6 mmol/L (3.5-5.5); Total Protein, Blood 6.7 g/dL (6.4-8.2)
[2023-03-20 04:00] VITALS: BP 196/90
[2023-03-20] MEDS ORDERED: SENNA LAXATIVE8.6 MG PO (04:26)
[2023-03-20] MEDS ORDERED: CONSTULOSE10 GM/155 PO (04:26)
[2023-03-20] MEDS ORDERED: BISA5EC PO (04:26)
[2023-03-20] MEDS ORDERED: Fleet Enema132 ML PR (04:26)
[2023-03-21] MEDS ORDERED: CONSTULOSE10 GM/155 PO (14:11)
== END 2023-03-20 05:05 ==
LOC: ER 00:26
PROVIDERS: Student in an Organized Health Care Education/Training Program
DX: K59.03 Drug induced constipation (principal); T40.2X5A Adverse effect of other opioids, initial encounter; S22.32XG Fracture of one rib, left side, subsequent encounter for fracture with delayed healing; D64.9 Anemia, unspecified; C90.00 Multiple myeloma not having achieved remission; I25.10 Atherosclerotic heart disease of native coronary artery without angina pectoris; I12.9 Hypertensive chronic kidney disease with stage 1 through stage 4 chronic kidney disease, or unspecified chronic kidney disease; E11.22 Type 2 diabetes mellitus with diabetic chronic kidney disease; N18.9 Chronic kidney disease, unspecified; E03.9 Hypothyroidism, unspecified; E78.5 Hyperlipidemia, unspecified; Z91.048 Other nonmedicinal substance allergy status; Z91.040 Latex allergy status; Z88.1 Allergy status to other antibiotic agents; Z88.5 Allergy status to narcotic agent; Z88.6 Allergy status to analgesic agent; Z88.8 Allergy status to other drugs, medicaments and biological substances; Z79.84 Long term (current) use of oral hypoglycemic drugs; Z79.899 Other long term (current) drug therapy; Z87.891 Personal history of nicotine dependence; W06.XXXD Fall from bed, subsequent encounter
CPT/HCPCS: 71046; 74177; 80053; 85025; 96361; 96374-59; 96376; 99285-25; A9270; J1170; J7030; Q9967

== ENCOUNTER 2023-06-25 17:56 | Inpatient (IN) | payer MEDICARE, BC ==
[~2023-06-25] VITALS: Ht 165.1 cm; Wt 54.9 kg
[~2023-06-25 17:56] MED LIST changes: +BISA5EC PO; +CONSTULOSE10 GM/155 PO; +Fleet Enema132 ML PR
[2023-06-25 19:36] LABS: Source, Urine Clean Catch
[2023-06-25 19:42] LABS: Appearance, Urine Hazy (Clear); Bilirubin, Urine Neg (Neg); Blood, Urine 1+ (Neg); Color, Urine Yellow (P-Yellow); Glucose Qualitative, Urine Neg (Neg); Ketones, Urine Neg (Neg); Leukocyte Esterase, Urine Neg (Neg); Nitrite, Urine Neg (Neg); Protein, Urine 3+ (Neg); Specific Gravity, Urine 1.025 (1.003-1.022); Urobilinogen, Urine NORM (Normal)
[2023-06-25 19:51] LABS: Amorphous Light (0-Heavy); Bacteria Few /hpf; Red Blood Cells, Urine 0-2 /hpf (0-2); Squamous Epithelial Cells Few /hpf (Few); White Blood Cells, Urine 0-2 /hpf (0-5)
[2023-06-25 19:59] LABS: BASOPHILS ABSOLUTE AUTO 0.02 K/mm3 (0.00-0.23); BASOPHILS PERCENT AUTO 0 % (0-2); Hematocrit 23.7 % (33.0-51.0); Hemoglobin 7.5 g/dL (11.5-16.0); LYMPHOCYTES ABSOLUTE AUTO 0.61 K/mm3 (0.84-5.20); LYMPHOCYTES PERCENT AUTO 13 % (21-46); MONOCYTES ABSOLUTE AUTO 0.88 K/mm3 (0.16-1.47); MONOCYTES PERCENT AUTO 19 % (4-13); Mean Corpuscular HGB 33.5 pg (26.0-34.0); Mean Corpuscular HGB Conc 31.6 g/dL (31.5-36.5); Mean Corpuscular Volume 106 fL (80-100); Mean Platelet Volume 10.6 fL (9.1-12.4); NRBC ABSOLUTE 0.02 K/mm3 (0.00-0.02); NRBC Auto 0.4 /100 WBC (0.0-0.2); RDW Coefficient Variation 13.2 % (11.7-14.2); RDW Standard Deviation 51.8 fL (35.1-46.3); Red Blood Cell Count 2.24 M/mm3 (3.80-5.20); White Blood Cell Count 4.74 K/mm3 (4.00-11.30)
[2023-06-25 20:02] LABS: EOSINOPHILS ABSOLUTE AUTO 0.01 K/mm3 (0.00-0.68); EOSINOPHILS PERCENT AUTO 0 % (0-6); IMMATURE GRAN PERCENT AUTO 2 % (0-1); NEUTROPHILS ABSOLUTE AUTO 3.12 K/mm3 (1.96-9.15); NEUTROPHILS PERCENT AUTO 66 % (41-73)
[2023-06-25 20:05] LABS: Platelet Count 39 K/mm3 (150-400)
[2023-06-25 20:29] LABS: Beta-hydroxybutyrate 7.7 mg/dL (0.2-2.8); Magnesium, Blood 2.5 mg/dL (1.6-2.4); Thyroid Stimulating Hormone 4.03 uIU/mL (0.360-4.800); Uric Acid, Blood 11.2 mg/dL (2.6-6.0)
[2023-06-25 20:30] LABS: Albumin, Blood 4.1 g/dL (3.4-5.0); Albumin/Globulin Ratio 1.4 (0.8-1.8); Bilirubin, Total 0.5 mg/dL (0.1-1.0); Bun/Creatinine Ratio 34.8 (12.0-20.0); Calcium, Blood 7.9 mg/dL (8.5-10.1); Creatinine, Blood 5.75 mg/dL (0.40-1.00); Globulin, Blood 2.9 g/dL (2.2-4.0); Phosphorus, Blood 8.5 mg/dL (2.5-4.9); Potassium, Blood 7.9 mmol/L (3.5-5.5)
[2023-06-25] MEDS ORDERED: Calcium Gluconate 10% 100 MG/ML INJ IV ONE ×3 (20:50→21:55)
[2023-06-25] MEDS ORDERED: Sodium Polystyrene Sulfonate 15GM / 60ML BTL PO ONE (20:50)
[2023-06-25] MEDS ORDERED: NS 1,000 ML IV SCH (20:50)
[2023-06-25] MEDS ORDERED: Dextrose 50% 50 ML Vial IV ONE (20:50)
[2023-06-25] MEDS ORDERED: Insulin Regular 100 Unit/ML 1ML Dose IV ONE (20:50)
[2023-06-25] MEDS ORDERED: Dextrose 50% 50 ML Syringe IV ONE (20:55)
[2023-06-25] MEDS ORDERED: Sodium Bicarb 8.4% 1 MEQ/ML 50 ML Vial IV ONE (21:00)
[2023-06-25] MEDS ORDERED: Sodium Bicarb 8.4% Inj 150 MEQ in Dextrose 5% 1,000 ML IV SCH ×2 (21:45→23:15)
[2023-06-25] MEDS ORDERED: Ondansetron HCl 2 MG / ML 2ML Vial ONE (21:57)
[2023-06-25] MEDS ORDERED: Calcium Gluconate 10% 2,000 MG in NS 100 ML IV SCH ×2 (22:10→22:45)
[2023-06-25] MEDS ORDERED: Furosemide 10 MG/ML 10ML Vial IV ONE (22:15)
[2023-06-25] MEDS ORDERED: Lactated Ringer's 1,000 ML IV ONE (22:15)
[2023-06-25] MEDS ORDERED: FLU VACC QS2023-24(6MOS UP)/PF 60 MCG/0.5 ML SYRINGE IM ONE (23:15)
[2023-06-25] MEDS ORDERED: Ondansetron HCl 2 MG / ML 2ML Vial IV PRN (23:15)
[2023-06-26] VITALS (55 sets, daily range): BP systolic 47–164; BP diastolic 28–103
--- NOTE | 2023-06-26 00:51 | NUR ---
SPOKE WITH CAT AND DAUGHTER SUSHIL REGARDING PLAN OF CARE. PT IS A DNR. MAY RECEIVE BLOOD PRODUCTS, PRESSORS FOR HYPOTENSION AND CENTRAL LINE IF NEED.
[2023-06-26] MEDS ORDERED: NS IV SCH (01:10)
[2023-06-26] MEDS ORDERED: PHENYLEPHRINE HCL IV SCH (01:10)
[2023-06-26 01:20] LABS: Hematocrit 20.8 % (33.0-51.0); Hemoglobin 6.6 g/dL (11.5-16.0); Mean Corpuscular HGB 33.5 pg (26.0-34.0); Mean Corpuscular HGB Conc 31.7 g/dL (31.5-36.5); Mean Corpuscular Volume 106 fL (80-100); Mean Platelet Volume 11.3 fL (9.1-12.4); RDW Coefficient Variation 13.3 % (11.7-14.2); Red Blood Cell Count 1.97 M/mm3 (3.80-5.20); White Blood Cell Count 2.38 K/mm3 (4.00-11.30)
[2023-06-26 01:22] LABS: Platelet Count 28 K/mm3 (150-400)
[2023-06-26 01:53] LABS: Calcium, Blood 12.6 mg/dL (8.5-10.1); Creatinine, Blood 4.3 mg/dL (0.40-1.00); Potassium, Blood 5.7 mmol/L (3.5-5.5)
[2023-06-26 02:12] LABS: BAND PERCENT MAN 9 % (0-8); BASOPHILS ABSOLUTE MAN 0.02 K/mm3 (0.00-0.23); BASOPHILS PERCENT MAN 1 % (0-2); EOSINOPHILS PERCENT MAN 0 % (0-6); LYMPHOCYTES ABSOLUTE MAN 0.21 K/mm3 (0.84-5.20); LYMPHOCYTES PERCENT MAN 9 % (21-46); MONOCYTES ABSOLUTE MAN 0.38 K/mm3 (0.16-1.47); MONOCYTES PERCENT MAN 16 % (4-13); NEUTROPHILS ABSOLUTE MAN 1.76 K/mm3 (1.96-9.15); SEG NEUTROPHILS PERCENT MAN 65 % (41-73); TOTAL CELLS COUNTED 100
[2023-06-26 02:37] LABS: International Normalized Ratio 1.08; Prothrombin Time Results 11.3 Sec (9.7-11.5)
[2023-06-26] MEDS ORDERED: NS 250 ML IV PRN (02:55)
[2023-06-26 02:58] LABS: Source, Urine Foley catheter
[2023-06-26 03:28] LABS: Bilirubin, Urine Neg (Neg); Blood, Urine Neg (Neg); Glucose Qualitative, Urine Neg (Neg); Ketones, Urine Neg (Neg); Leukocyte Esterase, Urine Neg (Neg); Nitrite, Urine Neg (Neg); Protein, Urine 1+ (Neg); Specific Gravity, Urine 1.015 (1.003-1.022); Urobilinogen, Urine NORM (Normal)
[2023-06-26] MEDS ORDERED: Aspir 8181 MG PO (03:29)
[2023-06-26] MEDS ORDERED: POMALYST3 MG PO (03:30)
[2023-06-26 04:21] LABS: Appearance, Urine Clear (Clear); Color, Urine Pale Yellow (P-Yellow)
[2023-06-26 05:29] LABS: BASOPHILS ABSOLUTE AUTO 0.03 K/mm3 (0.00-0.23); BASOPHILS PERCENT AUTO 1 % (0-2); EOSINOPHILS ABSOLUTE AUTO 0.01 K/mm3 (0.00-0.68); EOSINOPHILS PERCENT AUTO 0 % (0-6); Hematocrit 21.6 % (33.0-51.0); IMMATURE GRAN PERCENT AUTO 2 % (0-1); LYMPHOCYTES ABSOLUTE AUTO 0.55 K/mm3 (0.84-5.20); LYMPHOCYTES PERCENT AUTO 11 % (21-46); MONOCYTES ABSOLUTE AUTO 0.99 K/mm3 (0.16-1.47); MONOCYTES PERCENT AUTO 19 % (4-13); Mean Corpuscular HGB Conc 32.4 g/dL (31.5-36.5); Mean Corpuscular Volume 105 fL (80-100); NEUTROPHILS ABSOLUTE AUTO 3.56 K/mm3 (1.96-9.15); NEUTROPHILS PERCENT AUTO 68 % (41-73); RDW Coefficient Variation 13.4 % (11.7-14.2); RDW Standard Deviation 51.1 fL (35.1-46.3); Red Blood Cell Count 2.06 M/mm3 (3.80-5.20); White Blood Cell Count 5.24 K/mm3 (4.00-11.30)
[2023-06-26] MEDS ORDERED: Levothyroxine Sodium 0.05 MG Tab PO SCH (06:10)
[2023-06-26 06:32] LABS: Mean Platelet Volume 11.6 fL (9.1-12.4)
[2023-06-26 06:47] LABS: Platelet Count 41 K/mm3 (150-400)
[2023-06-26 06:53] LABS: Albumin, Blood 3.2 g/dL (3.4-5.0); Albumin/Globulin Ratio 1.4 (0.8-1.8); Bilirubin, Total 0.5 mg/dL (0.1-1.0); Calcium, Blood 11.7 mg/dL (8.5-10.1); Creatinine, Blood 4.19 mg/dL (0.40-1.00); Globulin, Blood 2.3 g/dL (2.2-4.0); Potassium, Blood 5.8 mmol/L (3.5-5.5); Total Protein, Blood 5.5 g/dL (6.4-8.2)
[2023-06-26 07:07] LABS: Bun/Creatinine Ratio 37.5 (12.0-20.0)
--- NOTE | 2023-06-26 07:18 | NUR ---
ARRIVAL TO ICU PT ARRIVED TO ICU 8. PT CONFUSED AT TIMES, AND A/O X 2-3 AT OTHERS. FOLLOWS DIRECTIONS AND MOVES ALL EXTREMITIES. TREMORLOUS. AFIB RATE 110-150'S. BP MAP 55-60'S. ON 3L. CRACKLES TO LEFT LUNG LOBES. SEE PREVIOUS NOTE REGARDING ESCALATION OF CARE. HOSP CALLED REGARDING H/H, PLT, AND ACCESS. ORDER FOR ONE UNIT OF PRBC. HOSP AT BEDSIDE TO PLACE CENTRAL LINE D/T PT ONLY HAVING TWO I/V'S AND NEEDING TO START PRESSORS. PT REFUSING AND IS ABLE TO STATE THAT SHE IS IN THE ICU, HER NAME AND BIRTHDAY. HOSP, THIS RN, AND ELECTROMECHANICAL ASSEMBLER IN ROOM AT THAT TIME. DAUGHTER CALLED AND UPDATED ON PT WISHES. DAUGHTER AGREEABLE TO POC. ORDER TO STOP BICARB DURING BLOOD TRANSFUSION, AND INFUSE BRIONNA THOUGH PIV. PT HAS 20G IN R AC, AND 24G IN R WRIST. HOSP AWARE OF NEED TO INFUSE PRBC THROUGH AC LEAVING BRIONNA TO INFUSE THROUGH WRIST PIV. PT HAS MADE MULTIPLE COMMENTS ON LEAVING HER ALONE AND REFUSING LAB DRAWS. PT EDUCATED ON THE NEED TO PROVIDE CARE. ELKINS PATENT AND DRAINING TO GRAVITY. REPORT GIVEN TO ONCFABIENNE RN.
--- NOTE | 2023-06-26 09:34 | NUR ---
ASSUMED CARE REPORT FROM RAVI CARIAS AT 0700. PT RESTING IN BED. SO AT BEDSIDE. PT ORIENTED TO SELF ONLY. ABLE TO STATES BIRTHDAY, DOES NOT KNOW LOCATION, DATE OR SITUATION. FOLLOWS SIMPLE COMMANDS. C/O DIFFUSE PAIN WHERE EVER TOUCHED. SO REPORTS RECENT DECLINE IN HEALTH OVER LAST MONTH, WEAKNESS, WEIGHT LOSS, CONFUSION. LUNGS CLEAR IN UPPER LOBES, COARSE IN BASES. ON 3L VIA NC, HOME O2 USE OF 4L PER SO. SR, RATE 70'S. BP STABLE. BRIONNA PLACED ON STANDBY. 1 UNIT PRBCS COMPLETED. REPEAT LABS DRAWN. PIV X 2. ELKINS PATENT, DRAINING CLEAR YELLOW URINE TO GRAVITY. WILL CONTINUE PLAN OF CARE.
[2023-06-26] MEDS ORDERED: Amiodarone HCl 50 MG / ML 3 ML Amp IV ONE (10:10)
[2023-06-26] MEDS ORDERED: Calcium Chloride 10% 10 ML SYR IV ONE (10:10)
[2023-06-26] MEDS ORDERED: Sodium Bicarb 8.4% 50 mEq Syringe IV ONE (10:10)
[2023-06-26 11:20] LABS: Calcium, Blood 11.3 mg/dL (8.5-10.1); Creatinine, Blood 4.25 mg/dL (0.40-1.00); Potassium, Blood 5.8 mmol/L (3.5-5.5)
--- NOTE | 2023-06-26 11:50 | NUR ---
Initial palliative care consult: Mana is an 83 year old with a history of multiple myeloma x 10 years, anemia, CAD, HTN, anxiety, hypothyroidism, DM type 2 and HLD. She was admitted on 06/25/23 for tumor lysis syndrome. She is currenlty undergoing oral cancer treatment. Dr. Rodriguez is her oncologist. Mana slept through the entire visit this morning. This policy writer attempted to awaken her but she did not open her eyes to touch or her name being called. Pt's Greg and dtr, Maryann are at the bedside. Pt lives with her . He reports that he is the striper spray gun caregiver for Mana and that he does all the cooking, cleaning, laundry. Maryann reports that she helps out when she can. Maryann reports she has her own health issues and is on a kidney transplant list. Maryann reports she has an appointment with her v groove cutter and may be needing to start dialysis soon. Family reports that Mana was first diagnosed with multiple myeloma about 10 years ago. She has gone through the bone marrow transplant and has had chemo treatments off and on during the last 10 years. They report more recently she has slowed down at home. She spends most of the time in her chair. She has SOB with exertion and at rest. She wears home O2 at 4 l/min continuously. She used to enjoy being on the computer and interacting with her pets which has recently not been happening. She has been confused at home and yelling at her family members recently which is not her normal behavior. Family members have questions about assistance in the home. Greg, her , who is the primary caregiver states that he hasn't been sleeping much recently. He is 86 and states that he is unsure how long he will be able to manage her at home. They have tools administrator care insurance and he has specific questions about that. Will plan to have CM meet with pt and family tomorrow to discuss options for in home care caregivers. Greg also plans to contact the LT insurance company tomorrow. Discussed options of in-home caregivers, assisted living type facilities, HH vs. hospice type services. Questions answered about each of the options. A consult for Dr. Rodriguez has been placed. His answering service was contacted to assist with directing care. Mana is currently receiving oral chemo. Greg reports she takes chemo daily for 21 days, has 7 days off and then takes another 21 days of chemo. Today would be day 16 of the second 21 day session. Discussed options and talking with Dr. Rodriguez before making any decisions on treatment plan. Currently pt is a DNR/DNI and this is confirmed with her family. Will plan to meet with pt and family along with EUGENIO RN tomorrow to discuss plan going forward. Hopefully pt and family will have had a chance to discuss options with Dr. Rodriguez by then as well. Community resource booklet along with considering comfort care booklet and hospice trifold given to pt's dtr per request. Also spoke with ARETHA Story CM, who will stop by and visit with family today. PC to meet with pt and family Tuesday 06/27 @ 1100 for advanced care planning.
[2023-06-26 13:32] LABS: Bun/Creatinine Ratio 40.8 (12.0-20.0); Calcium, Blood 10.7 mg/dL (8.5-10.1); Creatinine, Blood 4.14 mg/dL (0.40-1.00); Potassium, Blood 5.6 mmol/L (3.5-5.5)
[2023-06-26] MEDS ORDERED: Dextrose 5% 1,000 ML IV SCH (15:35)
[2023-06-26 16:28] LABS: Percent Saturation 90.2 % (15.0-50.0)
[2023-06-26 16:30] LABS: Hematocrit 22.6 % (33.0-51.0); Hemoglobin 7.6 g/dL (11.5-16.0)
[2023-06-26 17:10] LABS: Bun/Creatinine Ratio 40.5 (12.0-20.0); Calcium, Blood 10.7 mg/dL (8.5-10.1); Creatinine, Blood 4.07 mg/dL (0.40-1.00); Potassium, Blood 5.3 mmol/L (3.5-5.5)
--- NOTE | 2023-06-26 17:22 | NUR ---
SHIFT SUMMARY PT STATUS CHANGED TO PCU THIS SHIFT. CONTINUES TO BE A&OX 1, SLEPT MOST OF SHIFT, ONE EPISODE OF AGITATION, REASSURED AND PT RETURNED TO SLEEP. LUNGS CLEAR, DIM IN BASES. ON 3L VIA NC. SR, RATE 80'S. PT HAD APPROX 2 MIN EPISODE OF AFIB, RATE 120-160'S, SELF CONVERTED. BP STABLE, BRIONNA GTT REMAINS ON STANDBY. IVF CHANGED TO D5 AT 150 ML/HR PER DR PALACIOS. PT AND FAMILY MET c PALLIATIVE CARE THIS SHIFT. PT WORKED c PHYSICAL THERAPY, ASSIST TO SIT AT BEDSIDE. ELKINS PATENT, DRAINED 450 ML CLEAR YELLOW URINE OUT. WILL CONTINUE PLAN OF CARE UNTIL REPORT TO ONCOMING NURSE.
--- NOTE | 2023-06-26 18:34 | NUR ---
PT TRANSFERRED TO PCU 18. BEDSIDE REPORT TO ISAÍAS CARIAS. NOTIFIED. ALL BELONGINGS SENT c PT.
[2023-06-27 00:21] VITALS: BP 124/84
--- NOTE | 2023-06-27 01:53 | NUR ---
0145 - SPOKE WITH DR. AL REGARDING PT ANXIETY, CALLING OUT. MD ORDER FOR 0.5MG IV ATIVAN RECEIVED. PRIMARY RN UPDATED.
[2023-06-27] MEDS ORDERED: LORazepam 2 MG/ML 1ML Injection IV ONE (01:55)
[2023-06-27 04:28] VITALS: BP 133/94
[2023-06-27 05:19] LABS: Magnesium, Blood 1.6 mg/dL (1.6-2.4)
[2023-06-27 05:53] LABS: Anion Gap 6 mmol/L (6-16); Blood Urea Nitrogen 149 mg/dL (8-24); Bun/Creatinine Ratio 42.2 (12.0-20.0); CO2, Blood 22 mmol/L (21-32); Calcium, Blood 9.2 mg/dL (8.5-10.1); Chloride, Blood 110 mmol/L (98-108); Creatinine, Blood 3.53 mg/dL (0.40-1.00); Glomerular Filtration Rate 12 (60-); Glucose, Blood 167 mg/dL (70-99); Potassium, Blood 4.4 mmol/L (3.5-5.5); Sodium, Blood 138 mmol/L (136-145)
[2023-06-27 05:54] LABS: Phosphorus, Blood 4.9 mg/dL (2.5-4.9)
--- NOTE | 2023-06-27 06:49 | NUR ---
SHIFT SUMMARY A/Ox1-2 AND MOSTLY COOPERATIVE WITH CARE. CONTINUES TO BE LETHARGIC T/O MOST OF THE SHIFT, BUT IS EASILY AROUSABLE TO BOTH VERBAL AND TACTILE STIMULI. WAS VERY RESTLESS MIDWAY THROUGH THE NIGHT ATTEMPTINGV TO CLIMB OUT OF BED WITHOUT ASSISTANCE. PT RESPONDED WELL TO ONE TIME DOSE 0.5MG OF ATIVAN. CARDIAC, REMAINS IN SR 80-90'S T/O MOST OF THE SHIFT. DID HAVE INTERMITTENT EPISODES OF SVT DURING THE NIGHT, BUT PT WAS ASYMPTOMATIC DURING THESE EVENTS. RESPIRATORY, MAINTAINS SPO2 >90% ON 3L VIA NC. DENIES SOB OR DYSPNEA AT REST. GI/, ELKINS CATH REMAINS PATENT AND DRAINING YELLOW URINE TO GRAVITY. NO BM THIS SHIFT. DENIES N/V/D AT THIS TIME. Q2HR REPOSITIONING CONDUCTED ORDERED. NO NEW ORDERS AT THIS TIME, WILL REPORT TO ONCOMING RN. ASH BERRIOS OF THIS NOTE
--- NOTE | 2023-06-27 08:00 | NUR ---
INITIAL ASSESSMENT: Patient is resting with her eyes closed, resp e/u she wakes easily to verbal stimuli. She is oriented to self only and knows that she is in the hospital. She denies pain at this time. LS DIM T/O, she is high 90s on 3L o2 via NC, she wears 4L home O2 at home. Her HRR, she is currently SR with PACs per telemetry and is having frequent runs of A-Fib-she is asymtptomatic and self converts. BT+. PPP. She has dry BLE. She has an attends in place, CDI. Williamson cath is present for severely diminished renal function, its draining clear yellow urine. She has some redness to her coccyx that is banchable. She denies other needs at this time. Call light in reach. at bedside.
[2023-06-27 08:40] VITALS: BP 149/108
--- NOTE | 2023-06-27 11:30 | NUR ---
Met with pt's family in her room. CM was in interviewing pt's dtr at bedside this morning. Family is asking when oncologist will be in for a consult. Called over to Dr. Rodriguez office, staff will send him a message that family is waiting for his input before making a decision as to how to move forward with her care. Pt was briefly awake but quickly went back to sleep. Will plan to visit with family after they have had a chance to speak with oncologist for advanced care planning.
[2023-06-27 11:32] VITALS: BP 118/59
--- NOTE | 2023-06-27 14:00 | NUR ---
Update: Dr. Rodriguez is at the bedside to talk with family about treatment and progression of illness. After this converstaion he called to update the MD and this RN contacted palliative care to inform them the family has decided to proceed with comfort care and potentially home on hospice. The patient is currently resting comfortably, call light in reach.
[2023-06-27] MEDS ORDERED: Scopolamine Hydrobromide Patch TOP PRN (15:55)
[2023-06-27] MEDS ORDERED: LORazepam 1 MG Tab PO PRN (15:55)
[2023-06-27] MEDS ORDERED: Acetaminophen 650 MG Supp PR PRN (15:55)
[2023-06-27] MEDS ORDERED: Ondansetron HCl 2 MG / ML 2ML Vial IV PRN (15:55)
[2023-06-27] MEDS ORDERED: LORazepam 2 MG/ML 1ML Injection IV PRN (15:55)
[2023-06-27] MEDS ORDERED: OxyCODONE HCl Soln 20 MG/ML 1 ML Oral SYR SL PRN (15:55)
[2023-06-27] MEDS ORDERED: Atropine Sulfate 1% Opth Soln 2ML BTL SL PRN (15:55)
--- NOTE | 2023-06-27 16:07 | NUR ---
Status change to comfort care Pt and pt's family met with Dr. Rodriguez this afternoon. Family made the decision to change to comfort care and focus on comfort. Spoke with Dr. Betancourt who requested this RN to place comfort care orders. Greg and Maryann left the hospital after their conversation with Dr. Rodriguez. Called Greg at home. Greg reports he isn't sure what type of reaction pt had to morphine. He said she had it many years ago. He reports that Mana uses oxycodoone at home for pain relief when she needs it. Comfort care order set placed. Greg requests that if Mana is moved to a different unit that staff call his dtr, Maryann, to let her know. PC to continue to assist with symptom management as needed. CM involved with pt and family to arrange a discharge plan with hospice care.
--- NOTE | 2023-06-27 18:28 | NUR ---
Summary: Patient has been resting T/O the day, she has been oriented to self and location only. Minimal C/O lower back pain with repositioning. She was in SR for the majory of the shift with brief runs of A-Fib, she was asymptomatic and self converted. LS DIM, saturations have been stable with home O2. BT+, she had some episodes of nausea that were relieved with Zofran. Dr. Rodriguez came to see the patient to discuss prognosis and plan from here. Family decided to persue comfort care and eventually go home on hospice. No other changes this shift. Will report to oncoming RN.
--- NOTE | 2023-06-27 18:41 | NUR ---
transfer: Report was given to Emily Mehta RN, the patient will be transferred to room 363 via bed. Daughter and have been notified.
--- NOTE | 2023-06-28 05:03 | NUR ---
SHIFT SUMMARY 83 YR F ADMITTED ON 05/26/23. DNR/COMFORT CARE. NO ACUTE CHANGES THIS SHIFT. PT HAS SLEPT FOR MOST OF THIS SHIFT BUT AT ONE POINT DID WAKE UP CONFUSED AND AGITATED. SHE WAS TRYING TO GET OUT OF BED TO GO TO THE BATHROOM. WHEN SHE WAS TOLD THAT SHE HAD A ELKINS CATHETER SHE STATED THAT SHE DID NOT HAVE ONE AND SHE HAD TO PEE "RIGHT NOW". SHE WOULD NOT BELEIVE THAT SHE HAD A ELKINS UNTIL SHE WAS SHOWN THE ACTUAL COLLECTION BAG. SHE STATED TO THIS NURSE THAT SHE WAS TOLD BY SEVERAL PEOPLE THAT SHE WAS GOING TO IN THE MORNING. SHE WAS REASSURED THAT IT WAS UNLIKELY TO HAPPEN AND THEN BECAME UPSET THAT EVERYONE WAS LYING TO HER. SHE STATED THAT SHE JUST WANTED TO BE LEFT ALONE TO CRY. SHE APPEARED TO BE QUITE UPSET AND SHE WAS GIVEN ATIVAN PER EMAR FOR ANXIETY. THIS CALMED HER DOWN AND SHE WAS FINALLY ABLE TO GO BACK TO SLEEP. WILL CONTINUE TO MONITOR AND REPORT TO ONCOMING NURSE.
--- NOTE | 2023-06-28 15:53 | NUR ---
Spiritual care visit conducted. PAtient is lying in bed and resting. She awakens to the sound of her name but is weak. She tells me that she is holding up ok given the circumstances and that she has a family that cares for her and she welcomes prayer. I galdly provide prayer and a calming presence. She resonded well and showed signs of being comforted by the prayer. I will continue to remain available to patient nd family.
--- NOTE | 2023-06-28 18:46 | NUR ---
SHIFT SUMMARY PT WITH EYES CLOSED MOST OF THE DAY BUT DOES OCC OPEN HER EYES TO HER NAME. PARANOID THIS MORNING NOT WANTING TO TALK TO STAFF BUT WANTED TO TALK TO HER . INCONTINENT OF STOOL AND REPOSITIONED WITH HELP WHEN NEEDED. REMOVED HER O2 THIS MORNING AND DIDN'T WANT IT BACK ON BUT THIS EVENING APPEARED TO BE MORE SOB AND AGREEABLE TO O2 PLACED ON HER NOSE. REPORTING BACK PAIN THIS AFTERNOON WHEN ASKED. FAMILY IN AND OUT OF ROOM.
--- NOTE | 2023-06-29 05:07 | NUR ---
SHIFT SUMMARY 83 YR F ON COMFORT CARE. PT BECAMR RESTLESS @ APPROX 2300 AND STATED THAT SHE FELT SOB. SHE WAS GIVEN ROXINOL 10 MG AND HEAD OF BED WAS RAISED. SHE STATED THAT THIS HELPED BUT ASKED THE NURSE TO JUST LET HER , THAT SHE WAS TIRED OF BEING ALONE AND FEELING AWFUL. PT WAS OFFERED REASSURANCE AND REPOSITIONED AND TUCKED IN. SHE FELL ASLEEP AND SLEPT FOR MOST OF THE REST OF THE NIGHT.
[2023-06-29] MEDS ORDERED: Promethazine HCl 25 MG Tab PO PRN (08:45)
--- NOTE | 2023-06-29 16:09 | NUR ---
SUMMARY- PT A/O X3, NAPPING MOST OF THE DAY. MEDICATED FOR PAIN AND ANXIETY THIS AM, PT WAS ANXIOUS AND C/O BACK PAIN. SLEPT MOST OF THE SHIFT, STATED COMFORT. AGAIN MEDICATED ABOUT 1600 WITH C/O BACK PAIN. TAKING OXYCODONE LIQ WITH EFFECTIVE PAIN RELEIF. AT BEDSIDE MOST OF THE DAY, INVOLVED IN CARE, SUPPORTIVE. PT TAKING IN SIPS OF WATER DURING WAKINGN HOURS. BRITTNI FOR COMFORT. WILL REPORT TO NOC RN AT CHANGE OF SHIFT
--- NOTE | 2023-06-30 06:43 | NUR ---
SHIFT SUMMARY. PATIENT IS PLEASANTLY CONFUSED. PATIENTS PAIN ASSESSED AND MEDICATED PER EMAR. PATIENT HAVING ANXIETY WORRIED ABOUT SOMEONE/STRANGER COMING INTO HER ROOM; MEDICATED PER EMAR FOR ANXIETY. NO ACUTE EVENTS NOTED THIS SHIFT. PATIENT TURNED Q2. PATIENT HAS ELKINS CATHETER THAT IS PATENT AND DRAINING TO GRAVITY. NO S/S OF DISTRESS NOTED AT THIS TIME CARE IS ONGOING.
--- NOTE | 2023-06-30 16:05 | NUR ---
MET WITH PATIENT TO PROVIDE THERAPUTIC VISIT AND EVALUATE SYMPTOME MANAGMENT. SHE WAS HAVING DIFFICULTY STAYING AWAKE BUT WAS PLESANT DURING OUR VISIT. SHE REPORTED NO PAIN AT THIS TIME. SPOKE WITH PROVIDER ABOUT THIS CASE, FILLED OUT A POLST AND LEFT IT FOR HER AND DR TO SIGN. NOTIFIED BEDSIDE RN ABOUT THIS
--- NOTE | 2023-07-01 04:37 | NUR ---
SHIFT SUMMARY HOMA WAS DROWSY AND ORIENTED TO SELF AND HOSPITAL ON ASSESSMENT. PT WAS PLEASANT AND DIRECTABLE. PT DENIES NEW OR WORSENING COMPLAINTS, BUT GENERALLY JUST DOES NOT FEEL WELL. PT MEDICATED FOR PAIN NEEDED. NO ACUTE EVENTS TONIGHT, NO CHANGES TO CONDITION. PT RESTING IN BED AT A LOW POSITION WITH CALL LIGHT AND BED ALARM PLACED.
[2023-07-01] MEDS ORDERED: Meclizine HCl 25 MG Tab PO PRN (09:30)
[2023-07-01] MEDS ORDERED: MORP20L SL (12:54)
[2023-07-01] MEDS ORDERED: ACETAMINOPHEN PR (12:57)
[2023-07-01] MEDS ORDERED: Ativan1 MG PO (12:57)
[2023-07-01] MEDS ORDERED: ATROPINE SULFATE2 M1 SL (12:57)
[2023-07-01] MEDS ORDERED: PROM25 PO (12:58)
[2023-07-01] MEDS ORDERED: MECL12.5 PO (12:58)
[2023-07-01] MEDS ORDERED: ONDA4ODT MM (12:58)
[2023-07-01] MEDS ORDERED: TRANSDERM-SCOP1 EA10 TD (12:59)
== END 2023-07-01 12:49 | disposition hospice, home (50) | DRG 682 ==
LOC: ER 17:56 → MEDS 23:13 → ICUE 23:13 → PCU 06-26 18:22 → MEDS 06-27 18:49 → ENPENDDIS 07-01 10:06 → MEDS 07-01 12:49
PROVIDERS: Internal Medicine; Student in an Organized Health Care Education/Training Program; ADMIT Internal Medicine
PROC: 3E033XZ Introduction of Vasopressor into Peripheral Vein, Percutaneous Approach (ICD-10-PCS; principal; 2023-06-26)
PROC: 30233N1 Transfusion of Nonautologous Red Blood Cells into Peripheral Vein, Percutaneous Approach (ICD-10-PCS; 2023-06-26)
PROC: 0T9B70Z Drainage of Bladder with Drainage Device, Via Natural or Artificial Opening (ICD-10-PCS; 2023-06-26)
DX: E88.3 Tumor lysis syndrome (principal); D61.810 Antineoplastic chemotherapy induced pancytopenia; R57.1 Hypovolemic shock; C90.00 Multiple myeloma not having achieved remission; I47.20 Ventricular tachycardia, unspecified; E44.0 Moderate protein-calorie malnutrition; J96.11 Chronic respiratory failure with hypoxia; E87.0 Hyperosmolality and hypernatremia; Z51.5 Encounter for palliative care; Z66 Do not resuscitate; I47.10 Supraventricular tachycardia, unspecified; Z94.84 Stem cells transplant status; E87.21 Acute metabolic acidosis; G93.40 Encephalopathy, unspecified; N17.0 Acute kidney failure with tubular necrosis; E87.5 Hyperkalemia; T45.1X5A Adverse effect of antineoplastic and immunosuppressive drugs, initial encounter; I25.10 Atherosclerotic heart disease of native coronary artery without angina pectoris; E03.9 Hypothyroidism, unspecified; R62.7 Adult failure to thrive; E79.0 Hyperuricemia without signs of inflammatory arthritis and tophaceous disease; E86.0 Dehydration; E78.5 Hyperlipidemia, unspecified; E83.39 Other disorders of phosphorus metabolism; N18.9 Chronic kidney disease, unspecified; I12.9 Hypertensive chronic kidney disease with stage 1 through stage 4 chronic kidney disease, or unspecified chronic kidney disease; D63.0 Anemia in neoplastic disease; E11.22 Type 2 diabetes mellitus with diabetic chronic kidney disease; I48.91 Unspecified atrial fibrillation; E87.6 Hypokalemia; Z99.81 Dependence on supplemental oxygen; Z68.20 Body mass index [BMI] 20.0-20.9, adult; Z88.1 Allergy status to other antibiotic agents; Z88.5 Allergy status to narcotic agent; Z88.8 Allergy status to other drugs, medicaments and biological substances; Z91.040 Latex allergy status; Z79.82 Long term (current) use of aspirin; Z79.891 Long term (current) use of opiate analgesic; Z79.890 Hormone replacement therapy; Z79.84 Long term (current) use of oral hypoglycemic drugs; Z95.5 Presence of coronary angioplasty implant and graft; Z87.891 Personal history of nicotine dependence
CPT/HCPCS: 36415; 36430; 51702; 70450; 71045; 80048; 80053; 80069; 81001; 82010; 82140; 82330; 82570; 82607; 82728; 82746; 82947; 83540; 83550; 83615; 83735; 84100; 84156; 84300; 84443; 84550; 85014; 85018; 85025; 85610; 86850; 86900; 86901; 86902; 86905; 86923; 87040; 87077; 87086; 87186; 93005; 93010; 96374-59; 96375-59; 96376-59; 97110; 97163; 99285-25; A9270; J0282; J0612; J1815; J1940; J2060; J2371; J2405; J2783; J7030; J7040; J7050; J7070; J7120; J7799; P9016; P9612